=== PATIENT | male | born 1990 | race African-American/Black ===

== ENCOUNTER 2016-10-04 20:25 | Inpatient (IN) | payer BC, OTHER ==
[~2016-10-04] VITALS: Ht 193 cm; Wt 156.0 kg
[2016-10-04] MEDS ORDERED: FAMOTIDINE 20 MG INJ IV STA (21:29)
[2016-10-04] MEDS ORDERED: morphine 4 MG/ML VIAL IV STA (21:29)
[2016-10-04] MEDS ORDERED: ONDANSETRON 4 MG INJ IV STA (21:29)
[2016-10-04] MEDS ORDERED: SOD CHLORIDE 0.9% 1,000 ML IV STA (21:29)
[2016-10-04 22:01] LABS: ADD SCAN DIFF NO
[2016-10-04 22:05] LABS: BASOPHILS % 0.2 % (0.0-2.0); EOSINOPHILS # 0.1 10^3/ul (0.0-0.5); EOSINOPHILS % 0.5 % (0.0-7.0); HEMATOCRIT 48.9 % (42.0-52.0); HEMOGLOBIN 16.1 g/dl (14.0-18.0); LYMPHOCYTES # 1.4 10^3/ul (0.8-2.9); LYMPHOCYTES % 13.8 % (15.0-51.0); MEAN CORPUSCULAR HEMOGLOBIN 29.8 pg (29.0-33.0); MEAN CORPUSCULAR HGB CONC 32.9 g/dl (32.0-37.0); MEAN CORPUSCULAR VOLUME 90.4 fl (82.0-101.0); MEAN PLATELET VOLUME 10.5 fl (7.4-10.4); MONOCYTE # 0.9 10^3/ul (0.3-0.9); MONOCYTES % 9.2 % (0.0-11.0); NEUTROPHIL # 7.5 10^3/ul (1.6-7.5); NEUTROPHILS % 75.9 % (39.0-77.0); PLATELET COUNT 244 10^3/UL (140-415); RED BLOOD COUNT 5.41 10^6/ul (4.70-6.10); RED CELL DISTRIBUTION WIDTH 12.8 % (11.5-14.5); WHITE BLOOD COUNT 9.9 10^3/ul (4.8-10.8)
[2016-10-04 22:09] LABS: ADD UMIC NO; UR ASCORBIC ACID NEGATIVE (NEGATIVE); UR BILIRUBIN (Dip) NEGATIVE (NEGATIVE); UR BLOOD (Dip) NEGATIVE (NEGATIVE); UR CLARITY CLEAR (CLEAR); UR COLOR YELLOW (YELLOW); UR GLUCOSE (Dip) NEGATIVE (NEGATIVE); UR KETONES (Dip) TRACE mg/dL (NEGATIVE); UR LEUKOCYTE ESTERASE (Dip) NEGATIVE Leu/ul (NEGATIVE); UR NITRITE (Dip) NEGATIVE (NEGATIVE); UR TOTAL PROTEIN (Dip) NEGATIVE (NEGATIVE); UR UROBILINOGEN (Dip) NEGATIVE (NEGATIVE)
[2016-10-04 22:29] LABS: ALBUMIN 4.8 g/dl (3.3-4.9); ALBUMIN/GLOBULIN RATIO 1.54; BILIRUBIN,INDIRECT 2.1 mg/dl (0-1.1); BILIRUBIN,TOTAL 2.1 mg/dl (0.2-1.3); CALCIUM 9.5 mg/dl (8.4-10.2); CREATININE 0.95 mg/dl (0.61-1.24); POTASSIUM 3.7 mmol/L (3.5-5.1); TOTAL PROTEIN 7.9 g/dl (6.1-8.1)
--- NOTE | 2016-10-04 23:02 | RADRPT ---
PROCEDURE: CT abdomen and pelvis without contrast. CLINICAL INDICATION: Abdominal Pain TECHNIQUE: CT scan of the abdomen and pelvis without contrast was performed and is reconstructed a t 2.5 mm contiguous axial intervals from the dome of the diaphragm to the inferior pubic rami.. The patient was scanned without intravenous contrast. Sagittal and coronal reformatted images were obt ained from the axial source images. The calculated radiation dose measures 1502 mGy centimeters. The CTDI measures 24 mGy. COMPARISON: None. FINDINGS: The lung bases are clear of any infiltrate or nodule. No effusion is seen. The liver is of normal size, contour and attenuation with no mass or ductal dilatation. No gallston es are visualized. No splenic, adrenal or pancreatic abnormalities present. Kidneys are of normal size and contour. No hydronephrosis, calculus or masses seen. Ureters are o f normal course and caliber with no stone. No bladder mass or stone is present. There is no aneurysm. No adenopathy is present. No bowel mass or obstruction is present. The appendix is not commonly seen. The cecum is seen de ep in the central pelvis and there is 8 5 mm calcification superior to the cecum with mild infiltrat ion of the surrounding fat. It is unclear if this represents evidence of calcified appendicolith wi th early appendicitis or possibly diverticulitis. No discrete abscess or pneumoperitoneum is visual ized. There is trace pelvic ascites. The osseous structures are intact. IMPRESSION: Appendix not confidently visualized. Redundant cecum deep in the pelvis with a 5 mm adjacent calcif ication and surrounding infiltration of the fat. Question calcified appendicolith with early appendi citis versus diverticulitis. No abscess or pneumoperitoneum. Clinical correlation is suggested. C onsider repeat dedicated CT of pelvis with oral or rectal contrast and intravenous contrast for more definitive diagnosis. .Jamison Mckeon MD, MD Date Time Electronically viewed and signed by .Jamison Mckeon MD, on 10/04/2016 23:02 .A/
--- NOTE | 2016-10-04 23:29 | ERD ---
ER Documentation Chief Complaint Date/Time DATE: 10/04/16 TIME: 23:27 Chief Complaint AP since last night, +nausea, -vomit (RAMA VALENZUELA) HPI This is a 26-year-old male presents to the ER with lower abdominal pain that started last night. Pain is intermittent and severe. Pain is located in the right lower quadrant and radiates to the left lower quadrant. Patient admits to nausea however denies any vomiting or diarrhea. He denies any urinary frequency or dysuria. He has not taken anything for the pain. (RAMA VALENZUELA) ROS 12 point review of systems was done, all negative except per HPI. (RAMA VALENZUELA) Medications Home Meds Reported Medications Doxycycline Hyclate (Acticlate) 150 Mg Tablet, 150 MG PO, TAB 10/05/16 Allergies Allergies: Coded Allergies: No Known Allergy (Unverified , 10/04/16) PMhx/Soc History of Surgery: No Anesthesia Reaction: No Hx Neurological Disorder: No Hx Respiratory Disorders: No Hx Cardiac Disorders: No Hx Psychiatric Problems: No Hx Miscellaneous Medical Probl: No Hx Alcohol Use: Yes (OCC) Hx Substance Use: No Hx Tobacco Use: No Smoking Status: Never smoker (RAMA VALENZUELA) Physical Exam Vitals Vital Signs Date Time Temp Pulse Resp B/P Pulse Ox O2 Delivery O2 Flow Rate FiO2 10/04/16 20:58 98.5 67 18 143/104 100 (EKMEKJIANJACY MD) Physical Exam GENERAL: The patient is well developed and appropriate for usual state of health , in no apparent distress. HEENT: Atraumatic. CHEST: Clear to auscultation bilaterally. There are no rales, wheezes or rhonchi. HEART: Regular rate and rhythm. No murmurs, clicks, rubs or gallops. ABDOMEN: Soft and nondistended, tender to palpation in the right lower quadrant in the left lower quadrant.. Good bowel sounds. No rebound or guarding. No gross peritonitis. No gross organomegaly or masses. No Argueta sign or McBurney point tenderness. BACK: No midline or flank tenderness. NEURO: Alert and oriented. SKIN: The skin is warm and dry. (RAMA VALENZUELA) Result Diagram: 7/5/17 2140 7/5/17 2140 Results 24 hrs Laboratory Tests Test 10/04/16 21:40 10/04/16 21:46 White Blood Count 9.910^3/ul Red Blood Count 5.4110^6/ul Hemoglobin 16.1g/dl Hematocrit 48.9% Mean Corpuscular Volume 90.4fl Mean Corpuscular Hemoglobin 29.8pg Mean Corpuscular Hemoglobin Concent 32.9g/dl Red Cell Distribution Width 12.8% Platelet Count 69271^3/UL Mean Platelet Volume 10.5fl Neutrophils % 75.9% Lymphocytes % 13.8% Monocytes % 9.2% Eosinophils % 0.5% Basophils % 0.2% Nucleated Red Blood Cells % 0.0/100WBC Neutrophils # 7.510^3/ul Lymphocytes # 1.410^3/ul Monocytes # 0.910^3/ul Eosinophils # 0.110^3/ul Basophils # 0.010^3/ul Nucleated Red Blood Cells # 0.010^3/ul Sodium Level 137mmol/L Potassium Level 3.7mmol/L Chloride Level 99mmol/L Carbon Dioxide Level 30mmol/L Anion Gap 12 Blood Urea Nitrogen 8mg/dl Creatinine 0.95mg/dl Glucose Level 92mg/dl Calcium Level 9.5mg/dl Total Bilirubin 2.1mg/dl Direct Bilirubin 0.00mg/dl Indirect Bilirubin 2.1mg/dl Aspartate Amino Transf (AST/SGOT) 37IU/L Alanine Aminotransferase (ALT/SGPT) 35IU/L Alkaline Phosphatase 56IU/L Total Protein 7.9g/dl Albumin 4.8g/dl Globulin 3.10g/dl Albumin/Globulin Ratio 1.54 Lipase 28U/L Urine Color YELLOW Urine Clarity CLEAR Urine pH 6.0 Urine Specific [place] 1.020 Urine Ketones TRACEmg/dL Urine Nitrite NEGATIVEmg/dL Urine Bilirubin NEGATIVEmg/dL Urine Urobilinogen NEGATIVEmg/dL Urine Leukocyte Esterase NEGATIVELeu/ul Urine Hemoglobin NEGATIVEmg/dL Urine Glucose NEGATIVEmg/dL Urine Total Protein NEGATIVEmg/dl Current Medications Medications (Trade) Dose Ordered Sig/Roldan Route PRN Reason Start Time Stop Time Status Last Admin Dose Admin Sodium Chloride (NS) 1,000 ml @ 1,000 mls/hr Q1H STAT IV 10/04/16 21:29 10/04/16 22:28 DC 10/04/16 21:56 Morphine Sulfate (morphine) 6 mg ONCE STAT IV 10/04/16 21:29 10/04/16 21:31 DC 10/04/16 21:56 Ondansetron HCl (Zofran Inj) 4 mg ONCE STAT IV 10/04/16 21:29 10/04/16 21:31 DC 10/04/16 21:55 Famotidine (Pepcid Iv) 20 mg ONCE STAT IV 10/04/16 21:29 10/04/16 21:31 DC 10/04/16 21:55 Morphine Sulfate (morphine) 6 mg ONCE ONCE IV 10/04/16 23:30 10/04/16 23:31 DC 10/04/16 23:25 IV Flush 10 ml 10 ml STK-MED ONCE .ROUTE 10/04/16 23:35 10/04/16 23:36 DC 10/04/16 23:49 Sodium Chloride (NS) 100 ml @ ud STK-MED ONCE .ROUTE 10/04/16 23:35 10/04/16 23:36 DC 10/04/16 23:49 Iohexol 150 ml 150 ml STK-MED ONCE .ROUTE 10/04/16 23:35 10/04/16 23:36 DC 10/04/16 23:49 Piperacillin Sod/ Tazobactam Sod 100 ml @ 200 mls/hr ONCE ONCE IVPB 10/05/16 01:30 10/05/16 01:59 DC 10/05/16 02:01 Sodium Chloride (NS) 1,000 ml @ 1,000 mls/hr Q1H ONCE IV 10/05/16 01:30 10/05/16 02:29 DC 10/05/16 02:00 Hydromorphone HCl (Dilaudid) 1 mg ONCE STAT IV 10/05/16 01:36 10/05/16 01:37 DC 10/05/16 02:00 (JACY ELLIOTT MD) Procedures/MDM This is a 26-year-old male presents to the ER with lower abdominal pain that started last night. At this time CT indicates appendicitis versus diverticulitis. Patient was started on Zosyn and given fluids. We are awaiting surgery consultation at this time. Patient will more than likely be admitted. (RAMA VALENZUELA) Patient was signed out to me by the PA. CT shows evidence of possible acute appendicitis versus diverticulitis. Patient is hemodynamically stable at this time and afebrile. IV fluids and antibiotics were started. I spoke with the surgeon on-call, , who agreed to consult on the patient. Patient will be admitted to [facility]. Accepting Care Team: Current data and ongoing care discussed. Time: Time of admission Primary Provider: Qamar Consulting: bishop Outstanding Data: none (JACY ELLIOTT MD) Departure Diagnosis: Primary Impression: Acute appendicitis Acute appendicitis type: unspecified acute appendicitis type Qualified Code: K35.80 - Acute appendicitis, unspecified acute appendicitis type Condition: Serious RAMA VALENZUELA Oct 04, 2016 23:29 JACY ELLIOTT MD Oct 05, 2016 04:37
[2016-10-04] MEDS ORDERED: morphine 10 MG INJ IV ONE (23:30)
[2016-10-04] MEDS ORDERED: IOHEXOL 300MG/ML 150 ML BTL ONE (23:35)
[2016-10-04] MEDS ORDERED: SOD CHLORIDE 0.9% 100 ML ONE (23:35)
--- NOTE | 2016-10-05 00:45 | RADRPT ---
PROCEDURE: CT Abdomen and pelvis with contrast. CLINICAL INDICATION: Abdominal pain. TECHNIQUE: CT scan of the abdomen and pelvis with contrast was performed on a multi-detector high -resolution CT scanner. The patient was scanned following the uncomplicated administration of 100 c c of Omnipaque 300 intravenous contrast. Coronal and sagittal reformatted images were obtained from the axial source images. Images were reviewed on a high-resolution PACS workstation. One or more of the following dose reduction techniques were used: - Automated exposure control. - Adjustment of the mA and/or kV according to patient size. - Use of iterative reconstruction technique. Exam CTD/vol = 23.82 mGy. Total exam DLP = 1686.65 mGy-cm. COMPARISON: 10/04/2016. FINDINGS: Evaluation of the lung bases demonstrates mild right basilar atelectasis and trace pleural effusion. Abdomen: The liver is normal in size. There is no focal mass or dilatation of the biliary tree. T he gallbladder is not distended. The spleen, pancreas and bilateral adrenal glands are within carmen l limits. Bilateral kidneys are normal in size with symmetric enhancement. There is no focal mass, hydronephrosis or hydroureter. There is no retroperitoneal adenopathy. The abdominal aorta is of normal caliber. The appendix is not definitely visualized. Again demonstrated a focal outpouching off of the medial wall of the cecum containing a focal calcification, wall thickening and mild adjacent stranding. Th ere is no bowel obstruction or free air. Pelvis: The bladder is unremarkable. There is mild pelvic free fluid. The prostate and seminal ve sicles are within normal limits. There is no significant pelvic adenopathy. Evaluation of the osseous structures demonstrates no suspicious lytic or blastic lesion. IMPRESSION: Appendix is not definitely visualized. Again demonstrated a focal outpouching off of the medial wal l of the cecum containing a focal calcification, wall thickening and mild adjacent stranding. Findin gs are unchanged from the prior study and differential remains appendicitis versus diverticulitis. F ollow-up is recommended and further evaluation can be made by repeat contrast CT with oral or rectal contrast. Mild pelvic free fluid. Mild right basilar atelectasis and trace pleural effusion. .Oracio Martinez MD, MD Date Time Electronically viewed and signed by .Oracio Martinez MD, on 10/05/2016 00:44 .T/
[2016-10-05] MEDS ORDERED: SOD CHLORIDE 0.9% 1,000 ML IV ONE (01:30)
[2016-10-05] MEDS ORDERED: PIPER-TAZO 3.375 GM IV (PMX) 100 ML IVPB ONE (01:30)
[2016-10-05] MEDS ORDERED: HYDROmorphONE 1 MG/ML SYG IV STA (01:36)
[2016-10-05] MEDS ORDERED: ONDANSETRON 4 MG INJ IV PRN ×2 (02:30→04:30)
[2016-10-05] MEDS ORDERED: ACETAMINOPHEN 325 MG TAB PO PRN (02:30)
[2016-10-05 03:37] VITALS: TEMP 98.5
[2016-10-05] MEDS ORDERED: DOXY150T12 PO (03:41)
[2016-10-05 04:00] VITALS: BP 119/55; PULSE 45; RESP 18; Ht 193 cm; Wt 156.0 kg
--- NOTE | 2016-10-05 04:27 | HP ---
Date/Time of Note Date/Time of Note DATE: 10/05/16 TIME: 04:26 Assessment/Plan VTE Prophylaxis VTE Prophylaxis Intervention: ambulation Assessment/Plan Assessment/Plan 26 yo M who presents with RLQ abd pain of sudden onset with CT findings concerning for acute appendicitis versus diverticulitis. PLAN: admit / IVF / empiric abx / pain control / Dr Crockett has been notified by ER and will review patient . further interventions per clinical course NPO for now in case of surgery. HPI/ROS Admit Date/Time Admit Date/Time 10/05/16 Hx of Present Illness PRESENTING COMPLAINT: abd pain HISTORY OF PRESENTING COMPLAINT: This is a 26-year-old male presents to the ER with lower abdominal pain that started last night. Pain is intermittent and severe. Pain is located in the right lower quadrant and radiates to the left lower quadrant. pain is associated with nausea however denies any vomiting or diarrhea. He denies any urinary frequency or dysuria. no fever. ROS 12 point review if systems was done and pertinent findings are as noted. PMH/Family/Social Past Medical History Medical History: no pertinent history Past Surgical History Past Surgical Hx: other (surgery r hand) Family History Significant Family History: no pertinent family hx Social History Alcohol Use: occasionally Smoking Status: Never smoker Drug Use: none Exam/Review of Systems Vital Signs Vitals Vital Signs Date Time Temp Pulse Resp B/P Pulse Ox O2 Delivery O2 Flow Rate FiO2 10/05/16 03:37 98.5 50 18 128/61 97 Room Air Exam Exam Constitutional: alert, oriented Head: atraumatic, normocephalic Neck: non-tender, supple Respiratory: clear to auscultation Cardiovascular: regular rate and rhythm Gastrointestinal: rlq tenderness, overall abd is soft, non distended,+bs Extremities: normal pulses Labs Result Diagram: 10/04/16213910/04/162139 Procedures Procedures Laboratory Tests Test 10/04/16 21:40 10/04/16 21:46 White Blood Count 9.910^3/ul Red Blood Count 5.4110^6/ul Hemoglobin 16.1g/dl Hematocrit 48.9% Mean Corpuscular Volume 90.4fl Mean Corpuscular Hemoglobin 29.8pg Mean Corpuscular Hemoglobin Concent 32.9g/dl Red Cell Distribution Width 12.8% Platelet Count 75126^3/UL Mean Platelet Volume 10.5fl Neutrophils % 75.9% Lymphocytes % 13.8% Monocytes % 9.2% Eosinophils % 0.5% Basophils % 0.2% Nucleated Red Blood Cells % 0.0/100WBC Neutrophils # 7.510^3/ul Lymphocytes # 1.410^3/ul Monocytes # 0.910^3/ul Eosinophils # 0.110^3/ul Basophils # 0.010^3/ul Nucleated Red Blood Cells # 0.010^3/ul Sodium Level 137mmol/L Potassium Level 3.7mmol/L Chloride Level 99mmol/L Carbon Dioxide Level 30mmol/L Anion Gap 12 Blood Urea Nitrogen 8mg/dl Creatinine 0.95mg/dl Glucose Level 92mg/dl Calcium Level 9.5mg/dl Total Bilirubin 2.1mg/dl Direct Bilirubin 0.00mg/dl Indirect Bilirubin 2.1mg/dl Aspartate Amino Transf (AST/SGOT) 37IU/L Alanine Aminotransferase (ALT/SGPT) 35IU/L Alkaline Phosphatase 56IU/L Total Protein 7.9g/dl Albumin 4.8g/dl Globulin 3.10g/dl Albumin/Globulin Ratio 1.54 Lipase 28U/L Urine Color YELLOW Urine Clarity CLEAR Urine pH 6.0 Urine Specific [place] 1.020 Urine Ketones TRACEmg/dL Urine Nitrite NEGATIVEmg/dL Urine Bilirubin NEGATIVEmg/dL Urine Urobilinogen NEGATIVEmg/dL Urine Leukocyte Esterase NEGATIVELeu/ul Urine Hemoglobin NEGATIVEmg/dL Urine Glucose NEGATIVEmg/dL Urine Total Protein NEGATIVEmg/dl PROCEDURE: CT Abdomen and pelvis with contrast. CLINICAL INDICATION: Abdominal pain. TECHNIQUE: CT scan of the abdomen and pelvis with contrast was performed on a multi-detector high-resolution CT scanner. The patient was scanned following the uncomplicated administration of 100 cc of Omnipaque 300 intravenous contrast. Coronal and sagittal reformatted images were obtained from the axial source images. Images were reviewed on a high-resolution PACS workstation. One or more of the following dose reduction techniques were used: - Automated exposure control. - Adjustment of the mA and/or kV according to patient size. - Use of iterative reconstruction technique. Exam CTD/vol = 23.82 mGy. Total exam DLP = 1686.65 mGy-cm. COMPARISON: 10/04/2016. FINDINGS: Evaluation of the lung bases demonstrates mild right basilar atelectasis and trace pleural effusion. Abdomen: The liver is normal in size. There is no focal mass or dilatation of the biliary tree. The gallbladder is not distended. The spleen, pancreas and bilateral adrenal glands are within normal limits. Bilateral kidneys are normal in size with symmetric enhancement. There is no focal mass, hydronephrosis or hydroureter. There is no retroperitoneal adenopathy. The abdominal aorta is of normal caliber. The appendix is not definitely visualized. Again demonstrated a focal outpouching off of the medial wall of the cecum containing a focal calcification , wall thickening and mild adjacent stranding. There is no bowel obstruction or free air. Pelvis: The bladder is unremarkable. There is mild pelvic free fluid. The prostate and seminal vesicles are within normal limits. There is no significant pelvic adenopathy. Evaluation of the osseous structures demonstrates no suspicious lytic or blastic lesion. IMPRESSION: Appendix is not definitely visualized. Again demonstrated a focal outpouching off of the medial wall of the cecum containing a focal calcification, wall thickening and mild adjacent stranding. Findings are unchanged from the prior study and differential remains appendicitis versus diverticulitis. Follow-up is recommended and further evaluation can be made by repeat contrast CT with oral or rectal contrast. Mild pelvic free fluid. Mild right basilar atelectasis and trace pleural effusion. .Oracio Martinez MD, MD Date Time Electronically viewed and signed by .Oracio Martinez MD, MD on 10/05/2016 00:44 .T/ CC: RAMA VALENZUELA BOLATITO M. Oct 05, 2016 04:27
[2016-10-05] MEDS ORDERED: DOCUSATE SODIUM 100 MG CAP PO PRN (04:30)
[2016-10-05 05:05] LABS: ADD SCAN DIFF NO
[2016-10-05] MEDS: DEXTROSE 5%-0.45% NACL 1,000 ML IV SCH ×3 (05:11→20:46)
[2016-10-05] MEDS: metroNIDAZOLE 500 MG/NS (PMX) 100 ML IVPB SCH ×3 (05:11→21:54)
[2016-10-05 05:18] LABS: BASOPHILS % 0.3 % (0.0-2.0); EOSINOPHILS # 0.1 10^3/ul (0.0-0.5); EOSINOPHILS % 1.2 % (0.0-7.0); HEMATOCRIT 43.9 % (42.0-52.0); HEMOGLOBIN 14.4 g/dl (14.0-18.0); LYMPHOCYTES # 1.2 10^3/ul (0.8-2.9); LYMPHOCYTES % 15.7 % (15.0-51.0); MEAN CORPUSCULAR HEMOGLOBIN 29.5 pg (29.0-33.0); MEAN CORPUSCULAR HGB CONC 32.8 g/dl (32.0-37.0); MEAN PLATELET VOLUME 10.5 fl (7.4-10.4); MONOCYTE # 0.9 10^3/ul (0.3-0.9); MONOCYTES % 12.1 % (0.0-11.0); NEUTROPHIL # 5.2 10^3/ul (1.6-7.5); NEUTROPHILS % 70.6 % (39.0-77.0); PLATELET COUNT 228 10^3/UL (140-415); RED BLOOD COUNT 4.88 10^6/ul (4.70-6.10); RED CELL DISTRIBUTION WIDTH 12.5 % (11.5-14.5); WHITE BLOOD COUNT 7.4 10^3/ul (4.8-10.8)
[2016-10-05] MEDS: morphine 2 MG INJ IV PRN ×5 (05:19→22:48)
[2016-10-05 05:40] LABS: CALCIUM 8.6 mg/dl (8.4-10.2); CREATININE 0.86 mg/dl (0.61-1.24); MAGNESIUM 1.8 mg/dl (1.7-2.5); POTASSIUM 3.6 mmol/L (3.5-5.1)
[2016-10-05] MEDS: CIPROFLOXACIN 400MG/D5W 200 ML IVPB SCH ×2 (08:38→20:46)
[2016-10-05 09:09] VITALS: BP 99/47; RESP 20
[2016-10-05 11:47] VITALS: BP 122/64; PULSE 49; RESP 18
--- NOTE | 2016-10-05 14:15 | CONS ---
Date/Time of Note Date/Time of Note DATE: 10/05/16 TIME: 14:03 Assessment/Plan Assessment/Plan Additional Assessment/Plan Assessment * Abdominal pain R/O appendicitis vs Diverticulitis By CT scan Plan Surgery consult Maintain on NPO continue present management Case was discussed with Dr Salvador and DR Giles Further orders will depend on clinical course Consultation Date/Type/Reason Admit Date/Time 10/05/16 Date of Consultation: Oct 05, 2016 Type of Consultation: Gastroenterology Reason for Consultation Gastroenterology Hx of Present Illness 26 year old male who presented in the emergency room with right lower quadrant pain.Present condition apparently started 2 days prior to admission as vague abdominal pain associated with nausea but no vomiting .Pain is described as diffuse gradually localizing to right lower quadrant thus consulted emergency room where CT abdomen showed Appendix is not definitely visualized. Again demonstrated a focal outpouching off of the medial wall of the cecum containing a focal calcification, wall thickening and mild adjacent stranding. Findings are unchanged from the prior study and differential remains appendicitis versus diverticulitis. Follow-up is recommended and further evaluation can be made by repeat contrast CT with oral or rectal contrast.Mild pelvic free fluid.Mild right basilar atelectasis and trace pleural effusion CBC showed WBC 9.9 to 7.4 with neutrophils 75.9 to 70.6 Presently ,patient claimed improved right lower quadrant pain,no nausea , vomiting nor fever Constitutional: improved, no complaints Eyes: no complaints ENT: no complaints Respiratory: no complaints Cardiovascular: no complaints Gastrointestinal: nausea, pain Genitourinary: no complaints Musculoskeletal: no complaints Skin: no complaints Neurologic: no complaints Endocrine: no complaints Lymphatic: no complaints Psychological: nl mood/affect, no complaints Immunologic: no complaints Past Medical History Medical History: no pertinent history Past Surgical History Past Surgical Hx: other (surgery r hand) Social History Alcohol Use: occasionally Smoking Status: Never smoker Drug Use: none Exam/Review of Systems Vital Signs Vitals Vital Signs Date Time Temp Pulse Resp B/P Pulse Ox O2 Delivery O2 Flow Rate FiO2 10/05/16 13:46 97.8 10/05/16 11:47 49 18 122/64 Room Air 10/05/16 09:09 97 Intake and Output 10/04/16 10/04/16 10/05/16 15:00 23:00 07:00 Intake Total 110 ml Balance 110 ml Exam Constitutional: alert, oriented, well developed Psych: nl mood/affect, no complaints Head: atraumatic, normocephalic Eyes: EOMI, PERRL, nl conjunctiva, nl lids, nl sclera ENMT: nl external ears & nose, nl lips & teeth, nl nasal mucosa & septum Neck: non-tender, supple Respiratory: clear to auscultation, normal air movement Cardiovascular: nl pulses, regular rate and rhythm Gastrointestinal: nl liver, spleen, soft, tender (mild tenderness right lower quadrant .(-) Rovsings), No rebound or guarding Musculoskeletal: nl extremities to inspection, nl gait and stance Extremities: normal pulses Neurological: TROUBLE LINEMAN II-XII intact, nl mental status, nl speech, nl strength Skin: nl turgor, No rash or lesions Lymph: nl lymph nodes Results Result Diagram: 10/05/16 0453 10/05/16 0450 Results 24 hrs Laboratory Tests Test 10/04/16 21:40 10/04/16 21:46 10/05/16 04:50 10/05/16 04:53 White Blood Count 9.9 7.4 # Red Blood Count 5.41 4.88 Hemoglobin 16.1 14.4 Hematocrit 48.9 43.9 Mean Corpuscular Volume 90.4 90.0 Mean Corpuscular Hemoglobin 29.8 29.5 Mean Corpuscular Hemoglobin Concent 32.9 32.8 Red Cell Distribution Width 12.8 12.5 Platelet Count 244 228 Mean Platelet Volume 10.5 H 10.5 H Neutrophils % 75.9 70.6 Lymphocytes % 13.8 L 15.7 Monocytes % 9.2 12.1 H Eosinophils % 0.5 1.2 Basophils % 0.2 0.3 Nucleated Red Blood Cells % 0.0 0.0 Neutrophils # 7.5 5.2 Lymphocytes # 1.4 1.2 Monocytes # 0.9 0.9 Eosinophils # 0.1 0.1 Basophils # 0.0 0.0 Nucleated Red Blood Cells # 0.0 0.0 Sodium Level 137 137 Potassium Level 3.7 3.6 Chloride Level 99 102 Carbon Dioxide Level 30 27 Anion Gap 12 12 Blood Urea Nitrogen 8 6 L Creatinine 0.95 0.86 Glucose Level 92 92 Calcium Level 9.5 8.6 Total Bilirubin 2.1 H Direct Bilirubin 0.00 Indirect Bilirubin 2.1 H Aspartate Amino Transf (AST/SGOT) 37 Alanine Aminotransferase (ALT/SGPT) 35 Alkaline Phosphatase 56 Total Protein 7.9 Albumin 4.8 Globulin 3.10 Albumin/Globulin Ratio 1.54 Lipase 28 Urine Color YELLOW Urine Clarity CLEAR Urine pH 6.0 Urine Specific [place] 1.020 Urine Ketones TRACE A Urine Nitrite NEGATIVE Urine Bilirubin NEGATIVE Urine Urobilinogen NEGATIVE Urine Leukocyte Esterase NEGATIVE Urine Hemoglobin NEGATIVE Urine Glucose NEGATIVE Urine Total Protein NEGATIVE Magnesium Level 1.8 Medications Medications Current Medications Ondansetron HCl (Zofran Inj) 4 mg Q6H PRN IV NAUSEA AND/OR VOMITING; Start 10/05 at 04:30 Morphine Sulfate 2 mg 2 mg Q4H PRN IV pain Last administered on 10/05/16 08:37 ; Admin Dose 2 MG; Start 10/05/16 at 04:30 Dextrose/Sodium Chloride (D5-1/2ns) 1,000 ml @ 125 mls/hr Q8H IV Last administered on 10/05/16 11:42; Admin Dose 125 MLS/HR; Start 10/05/16 at 04:30 Docusate Sodium 100 mg 100 mg BID PRN PO CONSTIPATION; Start 10/05/16 at 04:30 Ciprofloxacin/ Dextrose 200 ml @ 200 mls/hr Q12 IVPB Last administered on 08:38; Admin Dose 200 MLS/HR; Start 10/05/16 at 09:00 Metronidazole (Flagyl 500 Mg (Pmx)) 100 ml @ 100 mls/hr Q8 IVPB Last administered on 10/05/16 13:47; Admin Dose 100 MLS/HR; Start 10/05/16 at 06:00 BECKY SQUIRES NP Oct 05, 2016 14:14
--- NOTE | 2016-10-05 15:53 | CONS ---
Date/Time of Note Date/Time of Note DATE: 10/05/16 TIME: 15:53 Assessment/Plan Assessment/Plan Additional Assessment/Plan [facility] INPATIENT CONSULTATION NOTE DATE OF SERVICE: 10/05/2016 PLACE OF SERVICE: [facility], fourth floor ASSESSMENT AND PLAN: A very-pleasant 26-year-old gentleman with a few comorbidities including BMI 41.9, with abdominal pain of unclear etiology. Not classic for acute appendicitis and no obvious appendix seen on the CT scan. Differential does include: Etiology such as diverticulosis as well as colitis. Given normal white blood cell count and temperature and unclear clinical picture , I recommended that we involve gastroenterology with consultation from them to consider possible need for endoscopic evaluation, further observation in-house and possible laparoscopic appendectomy if the patient continues to have pain or worsens. Explained all of the above to the patient and answered all questions to the best my ability (no family present during my discussions with the patient ). Patient appeared to understand and agreed with the plans. With above assessment, I've recommended the followin. Keep in house 2. Consider gastrology consultation 3. Regular diet 4. N.p.o. after midnight 5. Continue antimicrobials 6. Possible laparoscopic, possible open appendectomy tomorrow if the patient does not improve or if he worsens. This could also be done tonight if the patient continues to worsen. Thank you very much for having me involved in the care of this very pleasant gentleman and I am certain his wonderful family. I will continue to follow him along with you closely and will be available to answer any questions at [facility] [phone]. Disclaimer: Inadvertent spelling and grammatical errors are likely due to EHR/ dictation software use and do not reflect on the quality of delivered patient care. Also, please note that the electronic time recorded on this node does not necessarily reflect the actual time of the visit. Updated clinical summary: 26-year-old gentleman with a few comorbidities including BMI 41.9, with abdominal pain of unclear etiology. Not classic for acute appendicitis and no obvious appendix seen on the CT scan. Differential does include: Etiology such as diverticulosis as well as colitis. Given normal white blood cell count and temperature and unclear clinical picture, I recommended that we involve gastroenterology with consultation from them to consider possible need for endoscopic evaluation, further observation in-house and possible laparoscopic appendectomy if the patient continues to have pain or worsens. Comorbidities: 1. BMI 41.9 2. Similar episodes of right lower quadrant pain once or twice over the last 10 years HISTORY OF PRESENT ILLNESS: The patient is a very pleasant 26-year-old gentleman with a few comorbidities including BMI 41.9, with abdominal pain of less than 1 day duration that brought him into the emergency department at nighttime. Patient described it as a intermittent to severe type pain that was located in the right lower quadrant and radiated to the left lower quadrant. Some nausea noted but no obvious vomiting and no changes in bowel or bladder habits including no diarrhea, no constipation, and no blood in the stool or urine. He describes similar symptoms once or twice over the course of the last 10 years. He reported being evaluated and being told that he might have appendicitis but no surgery was ever done for this. No history of colitis in the patient and no significant history of colitis in the family. ALLERGIES: NO KNOWN DRUG ALLERGIES MEDICATIONS None SOCIAL HISTORY: The patient lives with family.-Tob; + ETOH (occasional);-IVDU FAMILY HISTORY: There are no significant medical, surgical or oncologic issues in the family as reported by the patient or reflected in the chart. REVIEW OF SYSTEMS: Other than mentioned above, there were no other pertinent positives or pertinent negatives in an otherwise complete 14 point review of systems. PHYSICAL EXAMINATION GENERAL: The patient appears to be a very pleasant young lady of descent lying in bed, appearing stated age,] and otherwise in no acute distress. BMI: VITAL SIGNS: AVSS (please also see below) HEENT: Normocephalic and atraumatic. Extraocular muscles and hearing are grossly intact bilaterally and symmetrically. Sclerae are nonicteric. Oral cavity is clear; oral mucosa appear to be pink and moist. Dentition: fair. NECK: Supple. There is no lymphadenopathy or JVD. There is no submental, submandibular or supraclavicular lymphadenopathy. CHEST: Rises symmetrically with each breath; patient is breathing comfortably. There are no audible wheezes, rales or rhonchi on the gross exam. HEART: Pulse is regular and palpable on the right wrist. Capillary refill is normal. Carotid pulses are palpable bilaterally and symmetrically in the neck. EXTREMITIES: Lower extremities contain no pitting edema around the ankles bilaterally and symmetrically. ABDOMEN: Abdomen is soft, nontender and nondistended. No evidence of ascites, organomegaly, caput medusae, engorged subcutaneous veins, or other abnormalities. There are no peritoneal signs or guarding. SKIN: Appears to be pink and feels warm to touch. NEUROLOGIC: Awake, alert, and follows commands appropriately. LABORATORY DATA: See below. White blood cell count 9.9 on admission and 7.4 on repeat, platelets 228. Electrolytes normal. Total bilirubin 2.1, AST 37, ALT 35, alkaline phosphatase 56, albumin 4.8, lipase 28. Urinalysis normal with no nitrite or leukocyte Estrace. IMAGING: See electronic chart. Please note that I've personally reviewed all pertinent available images and I agree in general with their overall reported findings. CT scan abdomen and pelvis done at [facility] 10/05/2016 IMPRESSION: Appendix is not definitely visualized. Again demonstrated a focal outpouching off of the medial wall of the cecum containing a focal calcification, wall thickening and mild adjacent stranding. Findings are unchanged from the prior study and differential remains appendicitis versus diverticulitis. Follow-up is recommended and further evaluation can be made by repeat contrast CT with oral or rectal contrast. Mild pelvic free fluid. Mild right basilar atelectasis and trace pleural effusion. Consultation Date/Type/Reason Admit Date/Time 10/05/16 Constitutional: improved, no complaints Eyes: no complaints ENT: no complaints Respiratory: no complaints Cardiovascular: no complaints Gastrointestinal: nausea, pain Genitourinary: no complaints Musculoskeletal: no complaints Skin: no complaints Neurologic: no complaints Endocrine: no complaints Lymphatic: no complaints Psychological: nl mood/affect, no complaints Immunologic: no complaints Past Medical History Medical History: no pertinent history Past Surgical History Past Surgical Hx: other (surgery r hand) Social History Alcohol Use: occasionally Smoking Status: Never smoker Drug Use: none Exam/Review of Systems Vital Signs Vitals Vital Signs Date Time Temp Pulse Resp B/P Pulse Ox O2 Delivery O2 Flow Rate FiO2 10/05/16 13:46 97.8 10/05/16 11:47 49 18 122/64 Room Air 10/05/16 09:09 97 Intake and Output 10/04/16 10/04/16 10/05/16 15:00 23:00 07:00 Intake Total 110 ml Balance 110 ml Results Result Diagram: 10/05/16 0453 10/05/16 0450 Results 24 hrs Laboratory Tests Test 10/04/16 21:40 10/04/16 21:46 10/05/16 04:50 10/05/16 04:53 White Blood Count 9.9 7.4 # Red Blood Count 5.41 4.88 Hemoglobin 16.1 14.4 Hematocrit 48.9 43.9 Mean Corpuscular Volume 90.4 90.0 Mean Corpuscular Hemoglobin 29.8 29.5 Mean Corpuscular Hemoglobin Concent 32.9 32.8 Red Cell Distribution Width 12.8 12.5 Platelet Count 244 228 Mean Platelet Volume 10.5 H 10.5 H Neutrophils % 75.9 70.6 Lymphocytes % 13.8 L 15.7 Monocytes % 9.2 12.1 H Eosinophils % 0.5 1.2 Basophils % 0.2 0.3 Nucleated Red Blood Cells % 0.0 0.0 Neutrophils # 7.5 5.2 Lymphocytes # 1.4 1.2 Monocytes # 0.9 0.9 Eosinophils # 0.1 0.1 Basophils # 0.0 0.0 Nucleated Red Blood Cells # 0.0 0.0 Sodium Level 137 137 Potassium Level 3.7 3.6 Chloride Level 99 102 Carbon Dioxide Level 30 27 Anion Gap 12 12 Blood Urea Nitrogen 8 6 L Creatinine 0.95 0.86 Glucose Level 92 92 Calcium Level 9.5 8.6 Total Bilirubin 2.1 H Direct Bilirubin 0.00 Indirect Bilirubin 2.1 H Aspartate Amino Transf (AST/SGOT) 37 Alanine Aminotransferase (ALT/SGPT) 35 Alkaline Phosphatase 56 Total Protein 7.9 Albumin 4.8 Globulin 3.10 Albumin/Globulin Ratio 1.54 Lipase 28 Urine Color YELLOW Urine Clarity CLEAR Urine pH 6.0 Urine Specific [place] 1.020 Urine Ketones TRACE A Urine Nitrite NEGATIVE Urine Bilirubin NEGATIVE Urine Urobilinogen NEGATIVE Urine Leukocyte Esterase NEGATIVE Urine Hemoglobin NEGATIVE Urine Glucose NEGATIVE Urine Total Protein NEGATIVE Magnesium Level 1.8 Medications Medications Current Medications Ondansetron HCl (Zofran Inj) 4 mg Q6H PRN IV NAUSEA AND/OR VOMITING; Start 10/05 at 04:30 Morphine Sulfate 2 mg 2 mg Q4H PRN IV pain Last administered on 10/05/16t 08:37 ; Admin Dose 2 MG; Start 10/05/16 at 04:30 Dextrose/Sodium Chloride (D5-1/2ns) 1,000 ml @ 125 mls/hr Q8H IV Last administered on 10/05/16 11:42; Admin Dose 125 MLS/HR; Start 10/05/16 at 04:30 Docusate Sodium 100 mg 100 mg BID PRN PO CONSTIPATION; Start 10/05/16 at 04:30 Ciprofloxacin/ Dextrose 200 ml @ 200 mls/hr Q12 IVPB Last administered on 08:38; Admin Dose 200 MLS/HR; Start 10/05/16 at 09:00 Metronidazole (Flagyl 500 Mg (Pmx)) 100 ml @ 100 mls/hr Q8 IVPB Last administered on 10/05/16 13:47; Admin Dose 100 MLS/HR; Start 10/05/16 at 06:00 NICANOR SCHMID M.D. Oct 05, 2016 15:53
[2016-10-05 19:50] VITALS: BP 117/56; RESP 48
[2016-10-06] MEDS: DEXTROSE 5%-0.45% NACL 1,000 ML IV SCH ×3 (04:30→20:38)
[2016-10-06] MEDS: metroNIDAZOLE 500 MG/NS (PMX) 100 ML IVPB SCH ×3 (05:47→22:37)
[2016-10-06 07:03] LABS: ADD SCAN DIFF NO
[2016-10-06 07:08] LABS: BASOPHILS % 0.4 % (0.0-2.0); EOSINOPHILS # 0.2 10^3/ul (0.0-0.5); EOSINOPHILS % 2.9 % (0.0-7.0); HEMATOCRIT 44.1 % (42.0-52.0); HEMOGLOBIN 14.4 g/dl (14.0-18.0); LYMPHOCYTES % 18.4 % (15.0-51.0); MEAN CORPUSCULAR HEMOGLOBIN 29.8 pg (29.0-33.0); MEAN CORPUSCULAR HGB CONC 32.7 g/dl (32.0-37.0); MEAN CORPUSCULAR VOLUME 91.3 fl (82.0-101.0); MEAN PLATELET VOLUME 10.5 fl (7.4-10.4); MONOCYTE # 0.8 10^3/ul (0.3-0.9); MONOCYTES % 14.6 % (0.0-11.0); NEUTROPHIL # 3.5 10^3/ul (1.6-7.5); NEUTROPHILS % 63.5 % (39.0-77.0); PLATELET COUNT 222 10^3/UL (140-415); RED BLOOD COUNT 4.83 10^6/ul (4.70-6.10); RED CELL DISTRIBUTION WIDTH 12.8 % (11.5-14.5); WHITE BLOOD COUNT 5.5 10^3/ul (4.8-10.8)
[2016-10-06 07:39] LABS: CALCIUM 9.2 mg/dl (8.4-10.2); CREATININE 0.96 mg/dl (0.61-1.24); POTASSIUM 4.2 mmol/L (3.5-5.1)
[2016-10-06] MEDS: CIPROFLOXACIN 400MG/D5W 200 ML IVPB SCH ×2 (08:46→21:13)
[2016-10-06 09:21] VITALS: BP 125/63; RESP 20
[2016-10-06] MEDS: morphine 2 MG INJ IV PRN ×2 (10:06→19:46)
--- NOTE | 2016-10-06 12:43 | PN ---
Date/Time of Note Date/Time of Note DATE: 10/06/16 TIME: 12:30 Assessment/Plan VTE Prophylaxis VTE Prophylaxis Intervention: ambulation Lines/Catheters IV Catheter Type (from Nrsg): Peripheral IV Assessment/Plan Chief Complaint/Hosp Course Assessment/Plan: 26 yo M who presents with RLQ abd pain of sudden onset with CT findings concerning for acute appendicitis versus diverticulitis. PLAN: RLQ pain - IVF / empiric abx / pain control /per discussion with Dr Crockett, will seek further gastroenterology input, especially regarding any possible colonoscopy procedures to further evaluate for any diverticular disease versus inflammatory bowel disease versus other. Right now surgery team does not feel like the appendix is significantly inflamed or the cause of the patient's pain at this point. Will start patient on clear liquid diet for now further interventions per clinical course Problems: Subjective 24 Hr Interval Summary Free Text/Dictation Patient seen by surgery team yesterday. Awaiting further input from GI attending. Asking when he can eat. Exam/Review of Systems Vital Signs Vitals Vital Signs Date Time Temp Pulse Resp B/P Pulse Ox O2 Delivery O2 Flow Rate FiO2 10/06/16 09:21 98.0 51 20 125/63 100 10/05/16 11:47 Room Air Intake and Output 10/05/16 10/05/16 10/06/16 15:00 23:00 07:00 Intake Total 300 ml 2300 ml 100 ml Balance 300 ml 2300 ml 100 ml Exam Constitutional: alert, oriented Head: atraumatic, normocephalic Neck: non-tender, supple Respiratory: clear to auscultation Cardiovascular: regular rate and rhythm Gastrointestinal: rlq tenderness, overall abd is soft, non distended,+bs Extremities: normal pulses Results Result Diagram: 10/06/16 0630 10/06/16 0638 Results 24 hrs Laboratory Tests Test 10/06/16 06:30 10/06/16 06:38 White Blood Count 5.5 # Red Blood Count 4.83 Hemoglobin 14.4 Hematocrit 44.1 Mean Corpuscular Volume 91.3 Mean Corpuscular Hemoglobin 29.8 Mean Corpuscular Hemoglobin Concent 32.7 Red Cell Distribution Width 12.8 Platelet Count 222 Mean Platelet Volume 10.5 H Neutrophils % 63.5 Lymphocytes % 18.4 Monocytes % 14.6 H Eosinophils % 2.9 Basophils % 0.4 Nucleated Red Blood Cells % 0.0 Neutrophils # 3.5 Lymphocytes # 1.0 Monocytes # 0.8 Eosinophils # 0.2 Basophils # 0.0 Nucleated Red Blood Cells # 0.0 Sodium Level 142 Potassium Level 4.2 Chloride Level 100 Carbon Dioxide Level 31 Anion Gap 15 Blood Urea Nitrogen 5 L Creatinine 0.96 Glucose Level 86 Calcium Level 9.2 Medications Medications Current Medications Ondansetron HCl (Zofran Inj) 4 mg Q6H PRN IV NAUSEA AND/OR VOMITING; Start 10/05 at 04:30 Morphine Sulfate 2 mg 2 mg Q4H PRN IV pain Last administered on 10/06/16 10:06 ; Admin Dose 2 MG; Start 10/05/16 at 04:30 Dextrose/Sodium Chloride (D5-1/2ns) 1,000 ml @ 125 mls/hr Q8H IV Last administered on 10/06/16 08:48; Admin Dose 125 MLS/HR; Start 10/05/16 at 04:30 Docusate Sodium 100 mg 100 mg BID PRN PO CONSTIPATION; Start 10/05/16 at 04:30 Ciprofloxacin/ Dextrose 200 ml @ 200 mls/hr Q12 IVPB Last administered on 08:46; Admin Dose 200 MLS/HR; Start 10/05/16 at 09:00 Metronidazole (Flagyl 500 Mg (Pmx)) 100 ml @ 100 mls/hr Q8 IVPB Last administered on 10/06/16 05:47; Admin Dose 100 MLS/HR; Start 10/05/16 at 06:00 TYLER DELEON Oct 06, 2016 12:41
--- NOTE | 2016-10-06 13:46 | PN ---
Date/Time of Note Date/Time of Note DATE: 10/06/16 TIME: 13:40 Assessment/Plan Lines/Catheters IV Catheter Type (from Nrsg): Peripheral IV Assessment/Plan Assessment/Plan [facility] Progress Note Date of Service: 10/06/16 Today's Impression & Plan: Overall stable with minor RLQ pain. Discussed with GI (Dr. Steven, covering for Dr. Salvador). At this time, recommendation is to go ahead with laparoscopic, possible open, appendectomy. I'm in agreement with this recommendation and discussed with Dr. Cm as well, in addition to the patient himself. Answered all questions. Obtained his consent for the operation. With above assessment, I've recommended the followin. Keep in house 2. Regular diet 3. N.p.o. after midnight 4. Continue antimicrobials 5. Laparoscopic, possible open appendectomy tomorrow am Thank you very much for having me involved in the care of this very pleasant gentleman and I am certain his wonderful family. I will continue to follow him along with you closely and will be available to answer any questions at area code [phone]. Disclaimer: Inadvertent spelling and grammatical errors are likely due to EHR/ dictation software use and do not reflect on the quality of delivered patient care. Also, please note that the electronic time recorded on this node does not necessarily reflect the actual time of the visit. Updated clinical summary: 26-year-old gentleman with a few comorbidities including BMI 41.9, with abdominal pain of unclear etiology. Not classic for acute appendicitis and no obvious appendix seen on the CT scan. Differential does include: Etiology such as diverticulosis as well as colitis. Given normal white blood cell count and temperature and unclear clinical picture, I recommended that we involve gastroenterology with consultation from them to consider possible need for endoscopic evaluation, further observation in-house and possible laparoscopic appendectomy if the patient continues to have pain or worsens. Comorbidities: 1. BMI 41.9 2. Similar episodes of right lower quadrant pain once or twice over the last 10 years Subjective: No major events or complaints; still with minor RLQ abd pain (when medication runs out) and under control with medications; no n/v/d; no sob or cp; + flatus; - BM; + activity Objective: Vitals: See below Exam: GENERAL: On exam, the patient was standing in his room and appeared to be comfortable and in no acute distress. ABDOMEN: Soft, nontender and nondistended. There are no peritoneal signs or guarding. SKIN: Skin appears to be pink and feels warm to touch. NEUROLOGIC: Patient is awake, alert, and follows commands appropriately. Exam/Review of Systems Vital Signs Vitals Vital Signs Date Time Temp Pulse Resp B/P Pulse Ox O2 Delivery O2 Flow Rate FiO2 10/06/16 09:21 98.0 51 20 125/63 100 10/05/16 11:47 Room Air Intake and Output 10/05/16 10/05/16 10/06/16 15:00 23:00 07:00 Intake Total 300 ml 2300 ml 100 ml Balance 300 ml 2300 ml 100 ml Results Result Diagram: 10/06/16 0630 10/06/16 0638 NICANOR SCHMID M.D. Oct 06, 2016 13:46
--- NOTE | 2016-10-06 14:30 | PN ---
Date/Time of Note Date/Time of Note DATE: 10/06/16 TIME: 14:26 Assessment/Plan VTE Prophylaxis VTE Prophylaxis Intervention: ambulation Lines/Catheters IV Catheter Type (from Nrsg): Peripheral IV Assessment/Plan Assessment/Plan Assessment * Abdominal pain R/O appendicitis vs Diverticulitis By CT scan Plan continue present management Case was discussed with Dr Salvador and DR Giles Further orders will depend on clinical course Subjective 24 Hr Interval Summary Free Text/Dictation * Course reviewed with RN * Patient seen and examined * Scheduled for appendectomy * no untoward events overnight Exam/Review of Systems Vital Signs Vitals Vital Signs Date Time Temp Pulse Resp B/P Pulse Ox O2 Delivery O2 Flow Rate FiO2 10/06/16 09:21 98.0 51 20 125/63 100 10/05/16 11:47 Room Air Intake and Output 10/05/16 10/05/16 10/06/16 15:00 23:00 07:00 Intake Total 300 ml 2300 ml 100 ml Balance 300 ml 2300 ml 100 ml Exam Constitutional: alert, oriented Neck: non-tender, supple Respiratory: clear to auscultation, normal air movement Cardiovascular: nl pulses, regular rate and rhythm Gastrointestinal: nl liver, spleen, non-tender, soft Musculoskeletal: nl extremities to inspection, nl gait and stance Extremities: normal pulses Neurological: nl speech, nl strength Skin: nl turgor Lymph: nl lymph nodes Results Result Diagram: 10/06/16 0630 10/06/16 0638 Results 24 hrs Laboratory Tests Test 10/06/16 06:30 10/06/16 06:38 White Blood Count 5.5 # Red Blood Count 4.83 Hemoglobin 14.4 Hematocrit 44.1 Mean Corpuscular Volume 91.3 Mean Corpuscular Hemoglobin 29.8 Mean Corpuscular Hemoglobin Concent 32.7 Red Cell Distribution Width 12.8 Platelet Count 222 Mean Platelet Volume 10.5 H Neutrophils % 63.5 Lymphocytes % 18.4 Monocytes % 14.6 H Eosinophils % 2.9 Basophils % 0.4 Nucleated Red Blood Cells % 0.0 Neutrophils # 3.5 Lymphocytes # 1.0 Monocytes # 0.8 Eosinophils # 0.2 Basophils # 0.0 Nucleated Red Blood Cells # 0.0 Sodium Level 142 Potassium Level 4.2 Chloride Level 100 Carbon Dioxide Level 31 Anion Gap 15 Blood Urea Nitrogen 5 L Creatinine 0.96 Glucose Level 86 Calcium Level 9.2 Medications Medications Current Medications Ondansetron HCl (Zofran Inj) 4 mg Q6H PRN IV NAUSEA AND/OR VOMITING; Start 10/05 at 04:30 Morphine Sulfate 2 mg 2 mg Q4H PRN IV pain Last administered on 10/06/16 10:06 ; Admin Dose 2 MG; Start 10/05/16 at 04:30 Dextrose/Sodium Chloride (D5-1/2ns) 1,000 ml @ 125 mls/hr Q8H IV Last administered on 10/06/16 08:48; Admin Dose 125 MLS/HR; Start 10/05/16 at 04:30 Docusate Sodium 100 mg 100 mg BID PRN PO CONSTIPATION; Start 10/05/16 at 04:30 Ciprofloxacin/ Dextrose 200 ml @ 200 mls/hr Q12 IVPB Last administered on 08:46; Admin Dose 200 MLS/HR; Start 10/05/16 at 09:00 Metronidazole (Flagyl 500 Mg (Pmx)) 100 ml @ 100 mls/hr Q8 IVPB Last administered on 10/06/16 05:47; Admin Dose 100 MLS/HR; Start 10/05/16 at 06:00 BECKY SQUIRES NP Oct 06, 2016 14:30
--- NOTE | 2016-10-06 16:56 | RADRPT ---
Vent Rate: 47 bpm RR Interval: 0 msec UT Interval: 250 msec QRS Duration: 112 msec QT Interval: 446 msec QTC Interval: 394 msec P-R-T [place]: 44 - 65 - 50 degrees Marked sinus bradycardia with 1st degree AV block Abnormal ECG Electronically Signed By: Ivan Kumar [id number]
[2016-10-06 19:40] VITALS: BP 136/74; RESP 18
--- NOTE | 2016-10-06 23:50 | RADRPT ---
PROCEDURE: XR Chest. CLINICAL INDICATION: Preoperative for appendicitis. TECHNIQUE: Two views. Frontal and lateral. COMPARISON: No prior study is available for comparison. FINDINGS: The lungs are clear. The heart size is normal. There is no pleural effusion. There is no pneumothorax. IMPRESSION: 1. Normal chest radiograph. RPTAT: QQ .Main Bacon MD, MD Date Time Electronically viewed and signed by .Main Bacon MD, MD on 10/06/2016 23:49 .R/
[2016-10-07] VITALS (17 sets, daily range): BP systolic 120–173; BP diastolic 57–75; PULSE 52–76; RESP 12–18
[2016-10-07] MEDS: DEXTROSE 5%-0.45% NACL 1,000 ML IV SCH (04:30)
[2016-10-07 05:32] LABS: ADD SCAN DIFF NO
[2016-10-07 05:48] LABS: INR 0.97; PROTIME 12.9 Sec (12.2-14.2)
[2016-10-07 05:49] LABS: PARTIAL THROMBOPLASTIN TIME 40.5 Sec (25.0-35.0)
[2016-10-07] MEDS: metroNIDAZOLE 500 MG/NS (PMX) 100 ML IVPB SCH (05:51)
[2016-10-07 06:05] LABS: ALBUMIN/GLOBULIN RATIO 1.42; BILIRUBIN,INDIRECT 0.5 mg/dl (0-1.1); BILIRUBIN,TOTAL 0.5 mg/dl (0.2-1.3); CALCIUM 9.5 mg/dl (8.4-10.2); CREATININE 0.91 mg/dl (0.61-1.24); MAGNESIUM 1.8 mg/dl (1.7-2.5); PHOSPHORUS 4.7 mg/dl (2.5-4.9); TOTAL PROTEIN 6.8 g/dl (6.1-8.1)
[2016-10-07 06:06] LABS: BASOPHIL # 0.1 10^3/ul (0.0-0.1); EOSINOPHILS # 0.2 10^3/ul (0.0-0.5); EOSINOPHILS % 3.1 % (0.0-7.0); HEMATOCRIT 43.4 % (42.0-52.0); HEMOGLOBIN 14.3 g/dl (14.0-18.0); LYMPHOCYTES # 1.4 10^3/ul (0.8-2.9); LYMPHOCYTES % 26.7 % (15.0-51.0); MEAN CORPUSCULAR HEMOGLOBIN 29.9 pg (29.0-33.0); MEAN CORPUSCULAR HGB CONC 32.9 g/dl (32.0-37.0); MEAN CORPUSCULAR VOLUME 90.8 fl (82.0-101.0); MEAN PLATELET VOLUME 10.9 fl (7.4-10.4); MONOCYTE # 0.8 10^3/ul (0.3-0.9); NEUTROPHIL # 2.7 10^3/ul (1.6-7.5); NEUTROPHILS % 53.1 % (39.0-77.0); PLATELET COUNT 227 10^3/UL (140-415); RED BLOOD COUNT 4.78 10^6/ul (4.70-6.10); RED CELL DISTRIBUTION WIDTH 12.8 % (11.5-14.5); WHITE BLOOD COUNT 5.1 10^3/ul (4.8-10.8)
[2016-10-07 06:32] LABS: MONOCYTES % 15.9 % (0.0-11.0)
[2016-10-07] MEDS ORDERED: LIDOCAINE 1% (MDV) 20 ML INJ ONE ×2 (07:00→08:41)
[2016-10-07] MEDS ORDERED: PROPOFOL 20 ML ONE (08:40)
[2016-10-07] MEDS ORDERED: SUCCINYLCHOLINE CHLORIDE 100 MG/5 ML SYG IV ONE (08:40)
[2016-10-07] MEDS ORDERED: MIDAZOLAM 1 MG/ML 2 ML INJ ONE (08:40)
[2016-10-07] MEDS ORDERED: ROCURONIUM 50 MG INJ ONE ×2 (08:40→10:08)
[2016-10-07] MEDS ORDERED: FENTAnyl 50 MCG/ML VIAL ONE ×3 (08:41→10:18)
[2016-10-07] MEDS ORDERED: SUGAMMADEX SODIUM 200 MG/2 ML VIAL IV ONE ×2 (08:48→12:04)
[2016-10-07] MEDS ORDERED: ROPIVACAINE 0.5 % 30 ML VIAL ONE (08:50)
[2016-10-07] MEDS ORDERED: KETOROLAC 30 MG INJ ONE (08:57)
[2016-10-07] MEDS: CIPROFLOXACIN 400MG/D5W 200 ML IVPB SCH (09:00)
--- NOTE | 2016-10-07 09:15 | HPN ---
Date/Time of Note Date/Time of Note DATE: 10/07/16 TIME: 09:06 Interval H&P Admission Note Pt. seen H&P reviewed: No system changes Pt. seen H&P reviewed. No system changes (I attest that I have seen and examined the patient and reviewed the operation in detail, as well as its risks , benefits and alternatives of the operation). I attest that I have seen and examined the patient and reviewed in detail the operation, and its associated risks, benefits and alternative. I have answered all the patient's questions to the best of my ability and the patient wishes to proceed. Please refer to rest of electronic medical record for additional updates. NICANOR SCHMID M.D. Oct 07, 2016 09:14
[2016-10-07] MEDS ORDERED: BUPIVACAINE 0.25%/EPI (SDV) 30 ML INJ ONE (09:27)
[2016-10-07] MEDS ORDERED: FAMOTIDINE 20 MG INJ ONE (09:54)
[2016-10-07] MEDS ORDERED: ONDANSETRON 4 MG INJ ONE (09:54)
[2016-10-07] MEDS ORDERED: DEXAMETHASONE 4 MG/ML 1 ML INJ ONE (09:54)
[2016-10-07] MEDS ORDERED: ONDANSETRON 4 MG INJ IV PRN (11:00)
[2016-10-07] MEDS ORDERED: HYDROmorphONE (0.2 MG/ML) 10ML SYG IV PRN ×2 (11:00)
[2016-10-07] MEDS ORDERED: METOCLOPRAMIDE 10 MG INJ IV PRN (11:00)
[2016-10-07] MEDS ORDERED: DIPHENHYDRAMINE 50 MG INJ IV PRN (11:00)
[2016-10-07] MEDS ORDERED: LORAZEPAM 2 MG INJ IV PRN (11:00)
[2016-10-07] MEDS ORDERED: MEPERIDINE 25 MG INJ IV PRN (11:00)
[2016-10-07] MEDS ORDERED: PROCHLORPERAZINE 10 MG INJ IV PRN (11:00)
[2016-10-07] MEDS ORDERED: MIDAZOLAM 1 MG/ML 2 ML INJ IV PRN (11:00)
[2016-10-07] MEDS ORDERED: hydrALAzine 20 MG INJ ONE (11:12)
[2016-10-07] MEDS ORDERED: NA PHOSPHATE/BIPHOS 133 ML ENEMA PR PRN (12:30)
[2016-10-07] MEDS ORDERED: HYDROmorphONE 1 MG/ML SYG IV PRN ×2 (12:30)
[2016-10-07] MEDS ORDERED: DOCUSATE SODIUM 100 MG CAP PO PRN (12:30)
[2016-10-07] MEDS ORDERED: BISACODYL 10 MG SUPP PR PRN (12:30)
[2016-10-07] MEDS: HYDROmorphONE (0.2 MG/ML) 10ML SYG IV PRN ×2 (12:47→13:03)
--- NOTE | 2016-10-07 12:49 | OPR ---
Date/Time of Note Date/Time of Note DATE: 10/07/16 TIME: 12:49 Operative Report Procedure Description [facility] INPATIENT OPERATIVE NOTE PLACE OF SERVICE: [facility] DATE OF SURGERY: 10/07/2016 PREOPERATIVE DIAGNOSIS: 1. Abdominal pain, possible acute appendicitis 2. Similar episodes of right lower quadrant pain once or twice over the last 10 years 3. BMI 41.9 POSTOPERATIVE DIAGNOSIS: 1. Focal colitis in cecum at and around expected site of appendix orifice with obliterated appendix 2. Similar episodes of right lower quadrant pain once or twice over the last 10 years 3. BMI 41.9 OPERATION: 1. Laparoscopic exploration with lysis of adhesions and mobilization of right colon SURGEON: Nicanor Schmid M.D. RESOURCE SPECIALIST: None ANESTHESIA: General endotracheal tube anesthesia ANESTHESIOLOGIST: Rosibel Sheppard M.D. BRIEF SUMMARY: An otherwise uncomplicated laparoscopic exploration with lysis of adhesions and mobilization of cecum usp up the descending colon as well as area of ileocecal valve was performed with findings of focal colitis added around the expected area of appendiceal stump with no structure identified as appendix indicating possible appendiceal obliteration. Updated clinical summary: A very pleasant 26-year-old gentleman with a few comorbidities including BMI 41.9, with abdominal pain of unclear etiology. Not classic for acute appendicitis and no obvious appendix seen on the CT scan. Differential does include: Etiology such as diverticulosis as well as colitis. Given normal white blood cell count and temperature and unclear clinical picture, I recommended that we involve gastroenterology with consultation from them to consider possible need for endoscopic evaluation, further observation in-house and possible laparoscopic appendectomy if the patient continues to have pain or worsens. Comorbidities: 1. BMI 41.9 2. Similar episodes of right lower quadrant pain once or twice over the last 10 years BRIEF HISTORY: The patient is a very pleasant 26-year-old gentleman with a few comorbidities including BMI 41.9, with abdominal pain of unclear etiology. Not classic for acute appendicitis and no obvious appendix seen on the CT scan. Differential included: Etiology such as diverticulosis as well as colitis. Given normal white blood cell count and temperature and unclear clinical picture , I recommended that we involve gastroenterology with consultation from them to consider possible need for endoscopic evaluation, further observation in-house and possible laparoscopic appendectomy if the patient continues to have pain or worsens. Patient remained clinically stable although still with right lower quadrant abdominal discomfort. I had a discussion with GI (Dr. Steven, covering for Dr. Salvador). At this time, recommendation was to go ahead with laparoscopic, possible open, appendectomy. I was in agreement with this recommendation and discussed with Dr. Cm as well, in addition to the patient himself. I met with the patient (and with his mother and sister right before the operation in his room) and counseled them regarding the possible options of treatment, and I recommended a laparoscopic, possible open appendectomy. We reviewed the operation in detail as well as the risks, benefits, alternatives, and expected outcomes of this operation. I also very carefully reviewed the rather unclear preoperative clinical picture and the possibilities of doing more surgery than just appendectomy (i.e. right hemicolectomy) or not removing any structures and backing out of the operation in order to do further testing ( i.e. colonoscopy). After careful consideration of all the risks, benefits, and alternatives, the patient and family appeared to understand those risks and wished to proceed with surgery. For a detailed report of my consultation with patient and family, please refer to my separate consultation note. STATEMENT OF THE INFORMED CONSENT: The patient and family appeared to understand the risks of the operation to include, but not be limited to risk of postoperative pain and scar tissue, possible infection or bleeding requiring other interventions such as opening the wound, placement of drainage catheters, or other operative interventions; possible injury to surrounding to structures including bowel, bladder, bile duct, or blood vessels, or solid organs such as liver, kidney, or pancreas requiring other interventions or procedures; possible leakage of bowel from anastomotic sites or suture lines causing significant increase in morbidity and mortality and requiring multiple interventions including but not limited to, placement of drainage catheters, imaging studies, as well as operative interventions; possible other source of sepsis such as urinary tract infections or pneumonias, or other sources of potentially life threatening problems such as deep venous thrombus formation causing pulmonary embolism, myocardial arrhythmias and infarctions, and even . After careful consideration of all their options, the patient and family appeared to understand and wished to proceed with surgery. DESCRIPTION OF PROCEDURE: After obtaining informed consent, the patient was brought into the operating room and was placed in a normal supine position, where successful general endotracheal tube anesthesia was performed. Intravenous access was already in place and intravenous antimicrobials had been appropriately chosen and dosed prior to the operation. The patient's abdominal skin was prepped and draped from the nipple line down to the level of the upper thighs in the usual sterile fashion. We then called a surgical time-out where the patient's identification, date of , nature of the operation, allergies , presence of intravenous antimicrobials, presence of needed equipment, and any other concerns were reviewed and agreed upon by all members of the operating room team. We then started the operation by placing a 5 mm skin incision in the left lower quadrant and then introduced a 5 mm [employer] trocar into the peritoneal space, visualizing all the layers of the abdominal wall as we entered. Note that there was no indication of any injury to underlying structures with our entry into the peritoneal space. We insufflated the abdominal cavity to a maximum pressure of 15 mmHg and again inspected the area of insertion and ensured no obvious injury to underlying structures prior to inspecting the abdominal cavity and showing no obvious pus, bowel contents, or other abnormal features. We could not see the appendix very well. We, therefore, injected the future sites of our other trocars with 0.25% Marcaine with epinephrine and placed a 5 mm [employer] trocar into the midline suprapubic area, taking care not to injure the bladder. We also placed a 12 mm trocar in the umbilical midline area, all under direct visualization. With our instruments in place, we had excellent visualization and access to the right lower quadrant. We then identified the cecum and the terminal ileum. The expected area where the appendix usually resides appear to be simply a swollen portion of the wall of the cecum. That area appeared to be thickened without any evidence of obvious malignancy or associated mass. The rest of the descending colon as well as the rest of the terminal ileum going into the ileocecal valve appeared to be absolutely normal. The cecum was densely adherent onto the retroperitoneum under where the expected area of the appendiceal stump was. In order to clarify the picture, I perform meticulous dissection and eventually was able to completely mobilize the cecum usp up the a sending colon as well as the area under the ileocecal valve. I could not find the appendix. There was a small area under the cecum very close to the ileocecal valve that appeared to have an outpouching of the cecum. Certainly, this could have been the stump of the appendix, although the probabilities were low given the location and the appearance of this region. The wall of this 1 cm area appeared to be pliable and the area more proximally of the wall of the appendix appears to be thickened. In my clinical judgment, this area did not represent the area of the appendix and because it was normal in appearance and the rest of the cecum was inflamed, I decided not to resect this region. I also carefully considered performing partial cecectomy to remove essentially the entire inflamed cecum, but I decided against doing so given the proximity of this region to the ileocecal valve and the potential for narrowing the ileocecal valve with this maneuver. In my reasoning, I also considered malignant reasons for this thickening versus nonmalignant etiologies of colitis. If this was a malignancy, then it would behoove us to make sure that we understand the preoperative diagnosis better, to stage the patient better, and preparing for the right oncologic operation. On the other hand, if this was from benign etiology such as colitis, then the patient would be at risk for colon perforation with a staple line in this setting and could potentially benefit and completely improved with medical management only. Also, removal of the right colon appeared to be too aggressive at this stage of his clinical care and in my opinion, not indicated at this time. For all these reasons, we decided to back out of the operation and to reinvolve our gastroenterology colleagues with the plan of patient having a bowel prep and colonoscopy during this admission and perhaps more surgery in a few days. We then ensured adequate hemostasis and bile stasis, removed all our equipment including the pneumoperitoneum from the abdominal cavity prior to closing the infraumbilical fascia with 1 [id number] 0 Vicryl suture on a UR-6 needle, washing the wounds with copious amounts of normal saline, injecting the initial insertion point of the trocar with 0.25% Marcaine with epinephrine, and then closing the skin using interrupted 4-0 Monocryl sutures. Light dressing was then applied. At the end of the operation, both the sponge count and needle count were reportedly correct x2. The patient tolerated the procedure without any reported complications. ESTIMATED BLOOD LOSS: Less than 10 mL. BLOOD OR BLOOD PRODUCT TRANSFUSIONS: None to my knowledge. SPECIMENS: None COMPLICATIONS: None. DISPOSITION: Recovery area. Disclaimer: Inadvertent spelling and grammatical errors are likely due to EHR/ dictation software use and do not reflect on the quality of delivered patient care. NICANOR SCHMID M.D. Oct 07, 2016 12:49
[2016-10-07] MEDS ORDERED: D5W-0.45 NACL + KCL 20 MEQ 1,000 ML IV SCH (13:00)
--- NOTE | 2016-10-07 13:54 | PN ---
Date/Time of Note Date/Time of Note DATE: 10/07/16 TIME: 13:51 Assessment/Plan VTE Prophylaxis VTE Prophylaxis Intervention: ambulation, LMWH Lines/Catheters IV Catheter Type (from Nrs): Peripheral IV Urinary Cath still in place: No Assessment/Plan Chief Complaint/Hosp Course Assessment/Plan: 26 yo M who presents with RLQ abd pain of sudden onset with CT findings concerning for acute appendicitis versus diverticulitis. 1.RLQ pain -symptoms slowly improved with pain control medications. Patient went for surgery today as well -Continue IVF / empiric abx / pain control -Follow-up post operation recommend patients from Dr Crockett, -May need further gastroenterology input, especially regarding any possible colonoscopy procedures to further evaluate for any diverticular disease versus inflammatory bowel disease versus other. 2. GI ppx - PPI 3. DVT ppx low molecular weight Heparin Problems: Subjective 24 Hr Interval Summary Free Text/Dictation No acute events overnight, patient went for surgery this morning. Exam/Review of Systems Vital Signs Vitals Vital Signs Date Time Temp Pulse Resp B/P Pulse Ox O2 Delivery O2 Flow Rate FiO2 10/07/16 13:26 98.2 54 14 140/59 97 Room Air Intake and Output 10/06/16 10/06/16 10/07/16 15:00 23:00 07:00 Intake Total 450 ml 2260 ml 1450 ml Balance 450 ml 2260 ml 1450 ml Exam PE -Unable to be performed today because patient is presently off the floor at surgery Results Result Diagram: 10/07/16 0429 10/07/16 0429 Results 24 hrs Laboratory Tests Test 10/07/16 04:29 White Blood Count 5.1 Red Blood Count 4.78 Hemoglobin 14.3 Hematocrit 43.4 Mean Corpuscular Volume 90.8 Mean Corpuscular Hemoglobin 29.9 Mean Corpuscular Hemoglobin Concent 32.9 Red Cell Distribution Width 12.8 Platelet Count 227 Mean Platelet Volume 10.9 H Neutrophils % 53.1 Lymphocytes % 26.7 Monocytes % 15.9 H Eosinophils % 3.1 Basophils % 1.0 Nucleated Red Blood Cells % 0.0 Neutrophils # 2.7 Lymphocytes # 1.4 Monocytes # 0.8 Eosinophils # 0.2 Basophils # 0.1 Nucleated Red Blood Cells # 0.0 Prothrombin Time 12.9 Prothrombin Time Ratio 1.0 INR International Normalized Ratio 0.97 Activated Partial Thromboplast Time 40.5 H Sodium Level 144 Potassium Level 4.0 Chloride Level 100 Carbon Dioxide Level 31 Anion Gap 17 H Blood Urea Nitrogen 11 Creatinine 0.91 Glucose Level 62 #L Calcium Level 9.5 Phosphorus Level 4.7 Magnesium Level 1.8 Total Bilirubin 0.5 Direct Bilirubin 0.00 Indirect Bilirubin 0.5 Aspartate Amino Transf (AST/SGOT) 33 Alanine Aminotransferase (ALT/SGPT) 29 Alkaline Phosphatase 49 Total Protein 6.8 Albumin 4.0 Globulin 2.80 Albumin/Globulin Ratio 1.42 Medications Medications Current Medications Ondansetron HCl (Zofran Inj) 4 mg Q6H PRN IV NAUSEA AND/OR VOMITING; Start 10/05 at 04:30 Docusate Sodium 100 mg 100 mg BID PRN PO CONSTIPATION; Start 10/05/16 at 04:30 Potassium Chloride/Dextrose/ Sod Cl (D5-1/2ns + KCl 20 Meq) 1,000 ml @ 100 mls/ hr Q10H IV ; Start 10/07/16 at 13:00 Acetaminophen/ Hydrocodone Bitart ([place] (5/325)) 1 tab Q4H PRN PO PAIN LEVEL 4 -7; Start 10/07/16 at 12:30 Acetaminophen/ Hydrocodone Bitart ([place] (5/325)) 2 tab Q4H PRN PO PAIN LEVEL 7 -10; Start 10/07/16 at 12:30 Hydromorphone HCl (Dilaudid) 0.5 mg Q2 PRN IV PAIN; Start 10/07/16 at 12:30 Hydromorphone HCl (Dilaudid) 1 mg Q2 PRN IV PAIN; Start 10/07/16 at 12:30 Docusate Sodium (Colace) 100 mg BID PRN PO CONSTIPATION; Start 10/07/16 at 12:30 Bisacodyl (Dulcolax Supp) 10 mg BID PRN [place] CONSTIPATION; Start 10/07/16 at 12:30 Sodium Biphosphate/ Sodium Phosphate (Fleet Enema) 133 ml BID PRN [place] CONSTIPATION; Start 10/07/16 at 12:30 Famotidine (Pepcid Iv) 20 mg DAILY IV ; Start 10/07/16 at 14:00 Enoxaparin Sodium (Lovenox) 40 mg DAILY SC ; Start 10/07/16 at 14:00 TYLER DELEON Oct 07, 2016 13:54
[2016-10-07] MEDS: FAMOTIDINE 20 MG INJ IV SCH (14:00)
[2016-10-07] MEDS: ENOXAPARIN 40 MG/0.4 ML SYG SC SCH (14:00)
[2016-10-07] MEDS: HYDROCODONE/APAP (5/325) TAB PO PRN ×3 (15:45→23:56)
[2016-10-08 00:03] VITALS: BP 127/60; PULSE 60; RESP 18
[2016-10-08 04:01] VITALS: BP 126/58; PULSE 61; RESP 18
[2016-10-08 05:36] LABS: ADD SCAN DIFF NO
[2016-10-08 05:42] LABS: BASOPHILS % 0.4 % (0.0-2.0); EOSINOPHILS % 0.3 % (0.0-7.0); HEMATOCRIT 43.1 % (42.0-52.0); HEMOGLOBIN 14.4 g/dl (14.0-18.0); LYMPHOCYTES # 1.2 10^3/ul (0.8-2.9); LYMPHOCYTES % 12.2 % (15.0-51.0); MEAN CORPUSCULAR HEMOGLOBIN 29.9 pg (29.0-33.0); MEAN CORPUSCULAR HGB CONC 33.4 g/dl (32.0-37.0); MEAN CORPUSCULAR VOLUME 89.6 fl (82.0-101.0); MEAN PLATELET VOLUME 11.1 fl (7.4-10.4); MONOCYTE # 0.9 10^3/ul (0.3-0.9); MONOCYTES % 9.7 % (0.0-11.0); NEUTROPHIL # 7.4 10^3/ul (1.6-7.5); NEUTROPHILS % 77.1 % (39.0-77.0); PLATELET COUNT 231 10^3/UL (140-415); RED BLOOD COUNT 4.81 10^6/ul (4.70-6.10); RED CELL DISTRIBUTION WIDTH 12.4 % (11.5-14.5); WHITE BLOOD COUNT 9.6 10^3/ul (4.8-10.8)
[2016-10-08 05:59] LABS: INR 1.04; PROTIME 13.6 Sec (12.2-14.2); PT RATIO 1.1
[2016-10-08 06:00] LABS: PARTIAL THROMBOPLASTIN TIME 30.3 Sec (25.0-35.0)
[2016-10-08] MEDS ORDERED: PANTOPRAZOLE 40 MG INJ IV SCH (06:00)
[2016-10-08 06:18] LABS: ALBUMIN/GLOBULIN RATIO 1.6; BILIRUBIN,INDIRECT 0.4 mg/dl (0-1.1); BILIRUBIN,TOTAL 0.4 mg/dl (0.2-1.3); CALCIUM 9.5 mg/dl (8.4-10.2); CREATININE 0.95 mg/dl (0.61-1.24); MAGNESIUM 1.5 mg/dl (1.7-2.5); POTASSIUM 4.1 mmol/L (3.5-5.1); TOTAL PROTEIN 6.5 g/dl (6.1-8.1)
[2016-10-08] MEDS: FAMOTIDINE 20 MG INJ IV SCH (08:34)
[2016-10-08] MEDS: HYDROCODONE/APAP (5/325) TAB PO PRN ×4 (08:34→20:59)
[2016-10-08] MEDS: ENOXAPARIN 40 MG/0.4 ML SYG SC SCH (08:48)
--- NOTE | 2016-10-08 09:55 | PN ---
Date/Time of Note Date/Time of Note DATE: 10/08/16 TIME: 09:48 Assessment/Plan VTE Prophylaxis VTE Prophylaxis Intervention: ambulation Lines/Catheters IV [facility] Saline Lock Urinary Cath still in place: No Assessment/Plan Assessment/Plan Assessment * Abdominal pain Focal colitis cecum around appendiceal site * R/O IBD vs others Plan * colonoscopy on Sunday risks and benefit explained to patient and agreed with planned procedure * Continue present management Subjective 24 Hr Interval Summary Free Text/Dictation Course reviewed with RN Patient seen and examined S/P Laparoscopic exploration with focal colitis Denies abdominal pain Exam/Review of Systems Vital Signs Vitals Vital Signs Date Time Temp Pulse Resp B/P Pulse Ox O2 Delivery O2 Flow Rate FiO2 10/08/16 04:01 98.1 61 18 126/58 100 Room Air Intake and Output 10/07/16 10/07/16 10/08/16 15:00 23:00 07:00 Intake Total 1200 ml 1200 ml 1400 ml Output Total 5 ml Balance 1195 ml 1200 ml 1400 ml Exam Constitutional: alert, oriented Head: normocephalic Neck: non-tender, supple Respiratory: clear to auscultation, normal air movement Cardiovascular: regular rate and rhythm Gastrointestinal: non-tender, soft Musculoskeletal: nl extremities to inspection, nl gait and stance Extremities: normal pulses Neurological: nl speech, nl strength Skin: nl turgor, No rash or lesions Results Result Diagram: 10/08/1643910/08/16439 Results 24 hrs Laboratory Tests Test 10/08/16 04:40 White Blood Count 9.6 # Red Blood Count 4.81 Hemoglobin 14.4 Hematocrit 43.1 Mean Corpuscular Volume 89.6 Mean Corpuscular Hemoglobin 29.9 Mean Corpuscular Hemoglobin Concent 33.4 Red Cell Distribution Width 12.4 Platelet Count 231 Mean Platelet Volume 11.1 H Neutrophils % 77.1 H Lymphocytes % 12.2 L Monocytes % 9.7 Eosinophils % 0.3 Basophils % 0.4 Nucleated Red Blood Cells % 0.0 Neutrophils # 7.4 Lymphocytes # 1.2 Monocytes # 0.9 Eosinophils # 0.0 Basophils # 0.0 Nucleated Red Blood Cells # 0.0 Prothrombin Time 13.6 Prothrombin Time Ratio 1.1 INR International Normalized Ratio 1.04 Activated Partial Thromboplast Time 30.3 Sodium Level 140 Potassium Level 4.1 Chloride Level 98 Carbon Dioxide Level 29 Anion Gap 17 H Blood Urea Nitrogen 10 Creatinine 0.95 Glucose Level 111 # Calcium Level 9.5 Phosphorus Level 4.0 Magnesium Level 1.5 L Total Bilirubin 0.4 Direct Bilirubin 0.00 Indirect Bilirubin 0.4 Aspartate Amino Transf (AST/SGOT) 28 Alanine Aminotransferase (ALT/SGPT) 24 Alkaline Phosphatase 46 Total Protein 6.5 Albumin 4.0 Globulin 2.50 Albumin/Globulin Ratio 1.60 Medications Medications Current Medications Ondansetron HCl (Zofran Inj) 4 mg Q6H PRN IV NAUSEA AND/OR VOMITING; Start 10/05 at 04:30 Docusate Sodium (Colace) 100 mg BID PRN PO CONSTIPATION; Start 10/05/16 at 04:30 Acetaminophen/ Hydrocodone Bitart ([place] (5/325)) 1 tab Q4H PRN PO PAIN LEVEL 4 -7; Start 10/07/16 at 12:30 Acetaminophen/ Hydrocodone Bitart ([place] (5/325)) 2 tab Q4H PRN PO PAIN LEVEL 7 -10 Last administered on 10/08/16 08:34; Admin Dose 2 TAB; Start 10/07/16 at 12: 30 Hydromorphone HCl (Dilaudid) 0.5 mg Q2 PRN IV PAIN; Start 10/07/16 at 12:30 Hydromorphone HCl (Dilaudid) 1 mg Q2 PRN IV PAIN; Start 10/07/16 at 12:30 Docusate Sodium (Colace) 100 mg BID PRN PO CONSTIPATION; Start 10/07/16 at 12:30 Bisacodyl (Dulcolax Supp) 10 mg BID PRN [place] CONSTIPATION; Start 10/07/16 at 12:30 Sodium Biphosphate/ Sodium Phosphate (Fleet Enema) 133 ml BID PRN [place] CONSTIPATION; Start 10/07/16 at 12:30 Famotidine (Pepcid Iv) 20 mg DAILY IV Last administered on 10/08/16 08:34; Admin Dose 20 MG; Start 10/07/16 at 14:00 Enoxaparin Sodium (Lovenox) 40 mg DAILY SC ; Start 10/07/16 at 14:00 JOSE CARLOS AVENDAÑO MD Oct 08, 2016 09:54
--- NOTE | 2016-10-08 11:58 | PN ---
Date/Time of Note Date/Time of Note DATE: 10/08/16 TIME: 11:56 Assessment/Plan VTE Prophylaxis VTE Prophylaxis Intervention: LMWH Lines/Catheters IV [facility] Saline Lock Urinary Cath still in place: No Assessment/Plan Chief Complaint/Hosp Course Assessment/Plan: 26 yo M who presents with RLQ abd pain of sudden onset with CT findings concerning for acute appendicitis versus diverticulitis. 1.RLQ pain -symptoms slowly improved with pain control medications. Patient postop day #1 laparoscopic surgery. -Continue IVF / empiric abx / pain control -Follow-up post operation recommend patients from Dr Crockett, i.e. regarding diet -Per gastroenterology input, planning for colonoscopy procedure in 2 days to further evaluate for any diverticular disease versus inflammatory bowel disease versus other. 2. GI ppx - PPI 3. DVT ppx low molecular weight Heparin Problems: Subjective 24 Hr Interval Summary Free Text/Dictation Patient had laparoscopic surgery yesterday. Tolerating diet presently. Walking in the hallway, no acute events overnight Exam/Review of Systems Vital Signs Vitals Vital Signs Date Time Temp Pulse Resp B/P Pulse Ox O2 Delivery O2 Flow Rate FiO2 10/08/16 04:01 98.1 61 18 126/58 100 Room Air Intake and Output 10/07/16 10/07/16 10/08/16 15:00 23:00 07:00 Intake Total 1200 ml 1200 ml 1400 ml Output Total 5 ml Balance 1195 ml 1200 ml 1400 ml Exam Constitutional: alert, oriented, ambulating in the hallway with daughter Head: atraumatic, normocephalic Neck: non-tender, supple Respiratory: clear to auscultation Cardiovascular: regular rate and rhythm Gastrointestinal: Less rlq tenderness, overall abd is soft, non distended,+bs Extremities: normal pulses Results Result Diagram: 10/08/16 0440 10/08/160 Results 24 hrs Laboratory Tests Test 10/08/16 04:40 White Blood Count 9.6 # Red Blood Count 4.81 Hemoglobin 14.4 Hematocrit 43.1 Mean Corpuscular Volume 89.6 Mean Corpuscular Hemoglobin 29.9 Mean Corpuscular Hemoglobin Concent 33.4 Red Cell Distribution Width 12.4 Platelet Count 231 Mean Platelet Volume 11.1 H Neutrophils % 77.1 H Lymphocytes % 12.2 L Monocytes % 9.7 Eosinophils % 0.3 Basophils % 0.4 Nucleated Red Blood Cells % 0.0 Neutrophils # 7.4 Lymphocytes # 1.2 Monocytes # 0.9 Eosinophils # 0.0 Basophils # 0.0 Nucleated Red Blood Cells # 0.0 Prothrombin Time 13.6 Prothrombin Time Ratio 1.1 INR International Normalized Ratio 1.04 Activated Partial Thromboplast Time 30.3 Sodium Level 140 Potassium Level 4.1 Chloride Level 98 Carbon Dioxide Level 29 Anion Gap 17 H Blood Urea Nitrogen 10 Creatinine 0.95 Glucose Level 111 # Calcium Level 9.5 Phosphorus Level 4.0 Magnesium Level 1.5 L Total Bilirubin 0.4 Direct Bilirubin 0.00 Indirect Bilirubin 0.4 Aspartate Amino Transf (AST/SGOT) 28 Alanine Aminotransferase (ALT/SGPT) 24 Alkaline Phosphatase 46 Total Protein 6.5 Albumin 4.0 Globulin 2.50 Albumin/Globulin Ratio 1.60 Medications Medications Current Medications Ondansetron HCl (Zofran Inj) 4 mg Q6H PRN IV NAUSEA AND/OR VOMITING; Start 10/05 at 04:30 Docusate Sodium (Colace) 100 mg BID PRN PO CONSTIPATION; Start 10/05/16 at 04:30 Acetaminophen/ Hydrocodone Bitart ([place] (5/325)) 1 tab Q4H PRN PO PAIN LEVEL 4 -7; Start 10/07/16 at 12:30 Acetaminophen/ Hydrocodone Bitart ([place] (5/325)) 2 tab Q4H PRN PO PAIN LEVEL 7 -10 Last administered on 10/08/16t 08:34; Admin Dose 2 TAB; Start 10/07/16 at 12: 30 Hydromorphone HCl (Dilaudid) 0.5 mg Q2 PRN IV PAIN; Start 10/07/16 at 12:30 Hydromorphone HCl (Dilaudid) 1 mg Q2 PRN IV PAIN; Start 10/07/16 at 12:30 Docusate Sodium (Colace) 100 mg BID PRN PO CONSTIPATION; Start 10/07/16 at 12:30 Bisacodyl (Dulcolax Supp) 10 mg BID PRN [place] CONSTIPATION; Start 10/07/16 at 12:30 Sodium Biphosphate/ Sodium Phosphate (Fleet Enema) 133 ml BID PRN [place] CONSTIPATION; Start 10/07/16 at 12:30 Famotidine (Pepcid Iv) 20 mg DAILY IV Last administered on 10/08/16t 08:34; Admin Dose 20 MG; Start 10/07/16 at 14:00 Enoxaparin Sodium (Lovenox) 40 mg DAILY SC ; Start 10/07/16 at 14:00 Bisacodyl (Dulcolax) 10 mg ONCE ONCE PO ; Start 10/09/16 at 10:00; Stop at 10:01 Magnesium Citrate (Citroma) 300 ml ONCE ONCE PO ; Start 10/09/16 at 17:30; Stop 10/09/16 at 17:31 Polyethylene Glycol 119 gm 119 gm ONCE ONCE PO ; Start 10/09/16 at 18:30; Stop 10/09/16 at 18:31 Magnesium Sulfate (Magnesium Sulfate 2 Gm/50 ml) 50 ml @ 25 mls/hr ONCE ONCE IVPB ; Start 10/08/16 at 12:00; Stop 10/08/16 at 13:59 TYLER DELEON Oct 08, 2016 11:57
[2016-10-08] MEDS ORDERED: MAGNESIUM SULFATE 2 GM/50 ML 50 ML IVPB ONE (12:00)
--- NOTE | 2016-10-08 12:09 | PN ---
Date/Time of Note Date/Time of Note DATE: 10/08/16 TIME: 12:04 Assessment/Plan Lines/Catheters IV Catheter Type (from Nrs): Saline Lock Ley in Place (from Nrs): No Assessment/Plan Assessment/Plan [facility] Progress Note Date of Service: 10/08/16 Today's Impression & Plan: Overall doing well post op without major issues. No major wound problems. Awaiting colonoscopy (? ability to do as an outpatient). Discussed with patient , family and primary team. With above assessment, I've recommended the following for today: 1. Cont current cares 2. Ask insurance company about possibility of quick outpatient colonoscopy 3. F/u with me after above Thank you again for your great care of this very pleasant patient and wonderful family. If there are any questions, please feel free to call me at [phone]. Disclaimer: Inadvertent spelling or grammatical errors are likely due to EHR/ dictation software use and do not reflect on the overall quality of patient care. Updated Clinical Summary: A very pleasant 26-year-old gentleman with a few comorbidities including BMI 41.9, with abdominal pain of unclear etiology. Not classic for acute appendicitis and no obvious appendix seen on the CT scan. Differential does include: Etiology such as diverticulosis as well as colitis. Given normal white blood cell count and temperature and unclear clinical picture, I recommended that we involve gastroenterology with consultation from them to consider possible need for endoscopic evaluation, further observation in-house and possible laparoscopic appendectomy if the patient continues to have pain or worsens. S/p an otherwise uncomplicated laparoscopic exploration with lysis of adhesions and mobilization of cecum long term up the descending colon as well as area of ileocecal valve at [facility] on 10/07/16 with findings of focal colitis added around the expected area of appendiceal stump with no structure identified as appendix indicating possible appendiceal obliteration. Comorbidities: 1. Focal colitis in cecum at and around expected site of appendix orifice with obliterated appendix; s/p laparoscopic exploration with lysis of adhesions and mobilization of right colon at [facility] 10/07/16 2. Similar episodes of right lower quadrant pain once or twice over the last 10 years 3. BMI 41.9 Subjective: No major events or complaints; no major abd pain and under control with medications; no n/v/d; no sob or cp; + flatus; + BM; + activity Objective: Vitals: See below Exam: GENERAL: On exam, the patient was sitting in his bed and appeared to be comfortable and in no acute distress. ABDOMEN: Soft, nontender and nondistended. Incision dressings are clean, dry and intact without any evidence of obvious underlying erythema, edema, discharge , or hernia. There are no peritoneal signs or guarding. SKIN: Skin appears to be pink and feels warm to touch. NEUROLOGIC: Patient is awake, alert, and follows commands appropriately. Exam/Review of Systems Vital Signs Vitals Vital Signs Date Time Temp Pulse Resp B/P Pulse Ox O2 Delivery O2 Flow Rate FiO2 10/08/16 04:01 98.1 61 18 126/58 100 Room Air Intake and Output 10/07/16 10/07/16 10/08/16 15:00 23:00 07:00 Intake Total 1200 ml 1200 ml 1400 ml Output Total 5 ml Balance 1195 ml 1200 ml 1400 ml Results Result Diagram: 10/08/16 0440 10/08/16 0440 NICANOR SCHMID M.D. Oct 08, 2016 12:09
[2016-10-08 12:35] VITALS: BP 145/66; RESP 20
[2016-10-08 19:40] VITALS: BP 142/65; RESP 20
[2016-10-09] MEDS: HYDROCODONE/APAP (5/325) TAB PO PRN ×4 (04:56→20:25)
[2016-10-09 05:02] LABS: ADD SCAN DIFF NO
[2016-10-09 05:14] LABS: BASOPHIL # 0.1 10^3/ul (0.0-0.1); BASOPHILS % 0.6 % (0.0-2.0); EOSINOPHILS # 0.1 10^3/ul (0.0-0.5); EOSINOPHILS % 1.7 % (0.0-7.0); HEMATOCRIT 43.2 % (42.0-52.0); HEMOGLOBIN 14.2 g/dl (14.0-18.0); LYMPHOCYTES # 2.3 10^3/ul (0.8-2.9); LYMPHOCYTES % 29.4 % (15.0-51.0); MEAN CORPUSCULAR HEMOGLOBIN 29.8 pg (29.0-33.0); MEAN CORPUSCULAR HGB CONC 32.9 g/dl (32.0-37.0); MEAN CORPUSCULAR VOLUME 90.6 fl (82.0-101.0); MEAN PLATELET VOLUME 10.6 fl (7.4-10.4); MONOCYTE # 1.1 10^3/ul (0.3-0.9); NEUTROPHIL # 4.2 10^3/ul (1.6-7.5); NEUTROPHILS % 53.9 % (39.0-77.0); PLATELET COUNT 230 10^3/UL (140-415); RED BLOOD COUNT 4.77 10^6/ul (4.70-6.10); RED CELL DISTRIBUTION WIDTH 12.9 % (11.5-14.5); WHITE BLOOD COUNT 7.7 10^3/ul (4.8-10.8)
[2016-10-09 05:35] LABS: MAGNESIUM 1.7 mg/dl (1.7-2.5); PHOSPHORUS 4.7 mg/dl (2.5-4.9)
[2016-10-09 05:44] LABS: CALCIUM 9.6 mg/dl (8.4-10.2); CREATININE 0.9 mg/dl (0.61-1.24); POTASSIUM 4.3 mmol/L (3.5-5.1)
[2016-10-09 08:59] VITALS: BP 128/75; RESP 20
[2016-10-09] MEDS: ENOXAPARIN 40 MG/0.4 ML SYG SC SCH (09:00)
[2016-10-09] MEDS: FAMOTIDINE 20 MG INJ IV SCH (09:31)
[2016-10-09] MEDS ORDERED: BISACODYL (EC) 5 MG TAB PO ONE (10:00)
--- NOTE | 2016-10-09 10:34 | PN ---
Date/Time of Note Date/Time of Note DATE: 10/09/16 TIME: 10:33 Assessment/Plan VTE Prophylaxis VTE Prophylaxis Intervention: SCD's Lines/Catheters IV Catheter Type (from Nrsg): Saline Lock Urinary Cath still in place: No Assessment/Plan Assessment/Plan 26 yo M with RLQ abd pain, etio unclear. ex lap 7.8 with focal colitis, etio unclear. PLAN #Cscope when approved by insurance to eval for diverticular disease v IBD v other sp empiric abx cont pain meds and IVFs discharge as per gen surg/GI consultants cont dvt prophx Subjective 24 Hr Interval Summary Free Text/Dictation Pt not in room at time of my attempted evaluation Exam/Review of Systems Vital Signs Vitals Vital Signs Date Time Temp Pulse Resp B/P Pulse Ox O2 Delivery O2 Flow Rate FiO2 10/09/16 08:59 97.8 20 128/75 94 10/08/16 19:40 47 10/08/16 04:01 Room Air Intake and Output 10/08/16 10/08/16 10/09/16 15:00 23:00 07:00 Intake Total 50 ml 1800 ml 1200 ml Balance 50 ml 1800 ml 1200 ml Exam Pt not in room at time of my attempted evaluation Results Result Diagram: 10/09/16 0430 10/09/16 0430 Results 24 hrs Laboratory Tests Test 10/09/16 04:30 White Blood Count 7.7 Red Blood Count 4.77 Hemoglobin 14.2 Hematocrit 43.2 Mean Corpuscular Volume 90.6 Mean Corpuscular Hemoglobin 29.8 Mean Corpuscular Hemoglobin Concent 32.9 Red Cell Distribution Width 12.9 Platelet Count 230 Mean Platelet Volume 10.6 H Neutrophils % 53.9 Lymphocytes % 29.4 Monocytes % 14.0 H Eosinophils % 1.7 Basophils % 0.6 Nucleated Red Blood Cells % 0.0 Neutrophils # 4.2 Lymphocytes # 2.3 Monocytes # 1.1 H Eosinophils # 0.1 Basophils # 0.1 Nucleated Red Blood Cells # 0.0 Sodium Level 140 Potassium Level 4.3 Chloride Level 97 Carbon Dioxide Level 31 Anion Gap 16 Blood Urea Nitrogen 11 Creatinine 0.90 Glucose Level 88 Calcium Level 9.6 Phosphorus Level 4.7 Magnesium Level 1.7 Medications Medications Current Medications Ondansetron HCl (Zofran Inj) 4 mg Q6H PRN IV NAUSEA AND/OR VOMITING; Start 10/05 at 04:30 Docusate Sodium (Colace) 100 mg BID PRN PO CONSTIPATION; Start 10/05/16 at 04:30 Acetaminophen/ Hydrocodone Bitart ([place] (5/325)) 1 tab Q4H PRN PO PAIN LEVEL 4 -7; Start 10/07/16 at 12:30 Acetaminophen/ Hydrocodone Bitart ([place] (5/325)) 2 tab Q4H PRN PO PAIN LEVEL 7 -10 Last administered on 10/09/16 04:56; Admin Dose 2 TAB; Start 10/07/16 at 12: 30 Hydromorphone HCl (Dilaudid) 0.5 mg Q2 PRN IV PAIN; Start 10/07/16 at 12:30 Hydromorphone HCl (Dilaudid) 1 mg Q2 PRN IV PAIN; Start 10/07/16 at 12:30 Docusate Sodium (Colace) 100 mg BID PRN PO CONSTIPATION; Start 10/07/16 at 12:30 Bisacodyl (Dulcolax Supp) 10 mg BID PRN [place] CONSTIPATION; Start 10/07/16 at 12:30 Sodium Biphosphate/ Sodium Phosphate (Fleet Enema) 133 ml BID PRN [place] CONSTIPATION; Start 10/07/16 at 12:30 Famotidine (Pepcid Iv) 20 mg DAILY IV Last administered on 10/09/16 09:31; Admin Dose 20 MG; Start 10/07/16 at 14:00 Enoxaparin Sodium (Lovenox) 40 mg DAILY SC ; Start 10/07/16 at 14:00 Magnesium Citrate (Citroma) 300 ml ONCE ONCE PO ; Start 10/09/16 at 17:30; Stop 10/09/16 at 17:31 Polyethylene Glycol (Miralax) 119 gm ONCE ONCE PO ; Start 10/09/16 at 18:30; Stop 10/09/16 at 18:31 KAREN WANG MD Oct 09, 2016 10:34 KAREN WANG MD Oct 09, 2016 10:34
--- NOTE | 2016-10-09 10:58 | PN ---
Date/Time of Note Date/Time of Note DATE: 10/09/16 TIME: 10:56 Assessment/Plan Lines/Catheters IV Catheter Type (from Nrs): Saline Lock Ley in Place (from Nrs): No Assessment/Plan Assessment/Plan [facility] Progress Note Date of Service: 10/09/16 Today's Impression & Plan: Overall doing well post op without major issues. No major wound problems. Awaiting decision on colonoscopy (? ability to do as an outpatient). Discussed with patient. With above assessment, I've recommended the following for today: 1. Cont current cares 2. Ask insurance company about possibility of quick outpatient colonoscopy 3. F/u with me after above Thank you again for your great care of this very pleasant patient and wonderful family. If there are any questions, please feel free to call me at [phone]. Disclaimer: Inadvertent spelling or grammatical errors are likely due to EHR/ dictation software use and do not reflect on the overall quality of patient care. Updated Clinical Summary: A very pleasant 26-year-old gentleman with a few comorbidities including BMI 41.9, with abdominal pain of unclear etiology. Not classic for acute appendicitis and no obvious appendix seen on the CT scan. Differential does include: Etiology such as diverticulosis as well as colitis. Given normal white blood cell count and temperature and unclear clinical picture, I recommended that we involve gastroenterology with consultation from them to consider possible need for endoscopic evaluation, further observation in-house and possible laparoscopic appendectomy if the patient continues to have pain or worsens. S/p an otherwise uncomplicated laparoscopic exploration with lysis of adhesions and mobilization of cecum half-way up the descending colon as well as area of ileocecal valve at [facility] on 10/07/16 with findings of focal colitis added around the expected area of appendiceal stump with no structure identified as appendix indicating possible appendiceal obliteration. Comorbidities: 1. Focal colitis in cecum at and around expected site of appendix orifice with obliterated appendix; s/p laparoscopic exploration with lysis of adhesions and mobilization of right colon at [facility] 10/07/16 2. Similar episodes of right lower quadrant pain once or twice over the last 10 years 3. BMI 41.9 Subjective: No major events or complaints; no major abd pain and under control with medications; no n/v/d; no sob or cp; + flatus; + BM; + activity Objective: Vitals: See below Exam: GENERAL: On exam, the patient was sitting in his bed and appeared to be comfortable and in no acute distress. ABDOMEN: Soft, nontender and nondistended. Incision dressings d/c'd and incisions are clean, dry and intact without any evidence of obvious erythema, edema, discharge, or hernia. There are no peritoneal signs or guarding. SKIN: Skin appears to be pink and feels warm to touch. NEUROLOGIC: Patient is awake, alert, and follows commands appropriately. Exam/Review of Systems Vital Signs Vitals Vital Signs Date Time Temp Pulse Resp B/P Pulse Ox O2 Delivery O2 Flow Rate FiO2 10/09/16 08:59 97.8 20 128/75 94 10/08/16 19:40 47 10/08/16 04:01 Room Air Intake and Output 10/08/16 10/08/16 10/09/16 15:00 23:00 07:00 Intake Total 50 ml 1800 ml 1200 ml Balance 50 ml 1800 ml 1200 ml Results Result Diagram: 10/09/16 0430 10/09/16 0430 NICANOR SCHMID M.D. Oct 09, 2016 10:58
[2016-10-09] MEDS ORDERED: MAGNESIUM CITRATE 300 ML BTL PO ONE (17:30)
[2016-10-09] MEDS ORDERED: POLYETHYLENE GLYCOL 3350 119 GM POWDER PO ONE (18:30)
--- NOTE | 2016-10-09 19:04 | PN ---
Date/Time of Note Date/Time of Note DATE: 10/09/16 TIME: 19:01 Assessment/Plan VTE Prophylaxis VTE Prophylaxis Intervention: SCD's Lines/Catheters IV Catheter Type (from [facility]): Saline Lock Urinary Cath still in place: No Assessment/Plan Assessment/Plan Assessment * Abdominal pain * Focal colitis cecum around appendiceal site * R/O IBD vs others Plan * Colonoscopy tomorrow risks and benefit explained to patient and agreed with planned procedure * Continue present management Subjective 24 Hr Interval Summary Free Text/Dictation Course reviewed with nursing staff Patient feels well, tolerating diet We will prep for colonoscopy tomorrow Procedure was explained in detail including risks, benefits and alternatives. Agreeable to proceed. Exam/Review of Systems Vital Signs Vitals Vital Signs Date Time Temp Pulse Resp B/P Pulse Ox O2 Delivery O2 Flow Rate FiO2 10/09/16 08:59 97.8 20 128/75 94 10/08/16 19:40 47 10/08/16 04:01 Room Air Intake and Output 10/08/16 10/08/16 10/09/16 14:59 22:59 06:59 Intake Total 50 ml 1800 ml 1200 ml Balance 50 ml 1800 ml 1200 ml Exam Constitutional: alert, oriented, well developed Psych: nl mood/affect, no complaints Head: atraumatic, normocephalic Eyes: EOMI, PERRL, nl conjunctiva, nl lids, nl sclera ENMT: nl external ears & nose, nl lips & teeth, nl nasal mucosa & septum Neck: non-tender, supple Respiratory: clear to auscultation, normal air movement Cardiovascular: nl pulses, regular rate and rhythm Gastrointestinal: bowel sounds, nl liver, spleen, soft, surgical scars, tender (Mild tenderness in the right lower quadrant), No ascites, No distended, No mass, No rebound or guarding Musculoskeletal: nl extremities to inspection, nl gait and stance Extremities: normal pulses Neurological: SENIOR MAINTENANCE TECHNICIAN II-XII intact, nl mental status, nl speech, nl strength Skin: nl turgor, No rash or lesions Lymph: nl lymph nodes Results Result Diagram: 10/09/160 10/09/16429 Results 24 hrs Laboratory Tests Test 10/09/16 04:30 White Blood Count 7.7 Red Blood Count 4.77 Hemoglobin 14.2 Hematocrit 43.2 Mean Corpuscular Volume 90.6 Mean Corpuscular Hemoglobin 29.8 Mean Corpuscular Hemoglobin Concent 32.9 Red Cell Distribution Width 12.9 Platelet Count 230 Mean Platelet Volume 10.6 H Neutrophils % 53.9 Lymphocytes % 29.4 Monocytes % 14.0 H Eosinophils % 1.7 Basophils % 0.6 Nucleated Red Blood Cells % 0.0 Neutrophils # 4.2 Lymphocytes # 2.3 Monocytes # 1.1 H Eosinophils # 0.1 Basophils # 0.1 Nucleated Red Blood Cells # 0.0 Sodium Level 140 Potassium Level 4.3 Chloride Level 97 Carbon Dioxide Level 31 Anion Gap 16 Blood Urea Nitrogen 11 Creatinine 0.90 Glucose Level 88 Calcium Level 9.6 Phosphorus Level 4.7 Magnesium Level 1.7 Medications Medications Current Medications Ondansetron HCl (Zofran Inj) 4 mg Q6H PRN IV NAUSEA AND/OR VOMITING; Start 10/05 at 04:30 Acetaminophen/ Hydrocodone Bitart ([place] (5/325)) 1 tab Q4H PRN PO PAIN LEVEL 4 -7 Last administered on 10/09/16 16:10; Admin Dose 1 TAB; Start 10/07/16 at 12: 30 Acetaminophen/ Hydrocodone Bitart ([place] (5/325)) 2 tab Q4H PRN PO PAIN LEVEL 7 -10 Last administered on 10/09/16 04:56; Admin Dose 2 TAB; Start 10/07/16 at 12: 30 Hydromorphone HCl (Dilaudid) 0.5 mg Q2 PRN IV PAIN; Start 10/07/16 at 12:30 Hydromorphone HCl (Dilaudid) 1 mg Q2 PRN IV PAIN; Start 10/07/16 at 12:30 Docusate Sodium (Colace) 100 mg BID PRN PO CONSTIPATION; Start 10/07/16 at 12:30 Bisacodyl (Dulcolax Supp) 10 mg BID PRN [place] CONSTIPATION; Start 10/07/16 at 12:30 Sodium Biphosphate/ Sodium Phosphate (Fleet Enema) 133 ml BID PRN [place] CONSTIPATION; Start 10/07/16 at 12:30 Enoxaparin Sodium (Lovenox) 40 mg DAILY SC ; Start 10/07/16 at 14:00 JOSE CARLOS AVENDAÑO MD Oct 09, 2016 19:04
[2016-10-09 19:21] VITALS: BP 132/66; RESP 18
[2016-10-10] VITALS (10 sets, daily range): BP systolic 109–146; BP diastolic 51–82; PULSE 45–68; RESP 15–20
[2016-10-10 05:16] LABS: ADD SCAN DIFF NO
[2016-10-10 05:22] LABS: BASOPHIL # 0.1 10^3/ul (0.0-0.1); BASOPHILS % 1.2 % (0.0-2.0); EOSINOPHILS # 0.1 10^3/ul (0.0-0.5); EOSINOPHILS % 2.9 % (0.0-7.0); HEMATOCRIT 45.5 % (42.0-52.0); HEMOGLOBIN 14.7 g/dl (14.0-18.0); LYMPHOCYTES # 1.8 10^3/ul (0.8-2.9); LYMPHOCYTES % 36.4 % (15.0-51.0); MEAN CORPUSCULAR HEMOGLOBIN 29.6 pg (29.0-33.0); MEAN CORPUSCULAR HGB CONC 32.3 g/dl (32.0-37.0); MEAN CORPUSCULAR VOLUME 91.5 fl (82.0-101.0); MEAN PLATELET VOLUME 10.7 fl (7.4-10.4); MONOCYTE # 0.6 10^3/ul (0.3-0.9); MONOCYTES % 12.3 % (0.0-11.0); NEUTROPHIL # 2.3 10^3/ul (1.6-7.5); PLATELET COUNT 256 10^3/UL (140-415); RED BLOOD COUNT 4.97 10^6/ul (4.70-6.10); RED CELL DISTRIBUTION WIDTH 12.7 % (11.5-14.5); WHITE BLOOD COUNT 4.8 10^3/ul (4.8-10.8)
[2016-10-10 05:35] LABS: INR 0.98; PARTIAL THROMBOPLASTIN TIME 30.3 Sec (25.0-35.0)
[2016-10-10 05:43] LABS: CALCIUM 9.5 mg/dl (8.4-10.2); CREATININE 1.04 mg/dl (0.61-1.24); POTASSIUM 3.9 mmol/L (3.5-5.1)
[2016-10-10] MEDS ORDERED: BISACODYL (EC) 5 MG TAB PO ONE (06:00)
[2016-10-10] MEDS ORDERED: POLYETHYLENE GLYCOL 3350 119 GM POWDER PO ONE (06:00)
[2016-10-10] MEDS: HYDROCODONE/APAP (5/325) TAB PO PRN ×4 (06:41→23:46)
[2016-10-10] MEDS: ENOXAPARIN 40 MG/0.4 ML SYG SC SCH (09:00)
--- NOTE | 2016-10-10 12:59 | PN ---
Date/Time of Note Date/Time of Note DATE: 10/10/16 TIME: 12:56 Assessment/Plan VTE Prophylaxis VTE Prophylaxis Intervention: SCD's Lines/Catheters IV Catheter Type (from [facility]): Saline Lock Urinary Cath still in place: No Assessment/Plan Chief Complaint/Hosp Course Assessment and plan 1. 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 right lower quadrant pain Likely secondary to above 3. BMI 41.9 Diet and exercise has been recommended We will continue monitor patient closely for recommendation management treatment as clinical course Problems: Subjective 24 Hr Interval Summary Free Text/Dictation Patient denies of any chest pain or shortness of breath No abdominal discomfort N.p.o. secondary to upcoming procedure/colonoscopy Exam/Review of Systems Vital Signs Vitals Vital Signs Date Time Temp Pulse Resp B/P Pulse Ox O2 Delivery O2 Flow Rate FiO2 10/10/16 08:39 97.7 51 19 146/63 99 10/08/16 04:01 Room Air Intake and Output 10/09/16 10/09/16 10/10/16 15:00 23:00 07:00 Intake Total 1580 ml 580 ml Balance 1580 ml 580 ml Exam General: The patient is well-developed, Not in acute distress. Moderately overweight with BMI 41.9 HEENT: Atraumatic, normocephalic. The pupils are equal and round . Neck: Supple with full range of motion. Chest: Normal expansion of the thorax during inspiration Lungs: Clear to auscultation bilaterally Heart: Normal S1-S2, Regular rhythm and rate. Abdomen: Soft , nontender, nondistended , bowel sounds are present. Surgical site is dry and clean with minimal erythema at the surgical site Extremities: Normal to inspection, no edema no cyanosis Neurologic: Normal mental status,The patient is awake, alert and oriented . Results Result Diagram: 10/10/16 0420 10/10/16 042 Results 24 hrs Laboratory Tests Test 10/10/16 04:20 White Blood Count 4.8 # Red Blood Count 4.97 Hemoglobin 14.7 Hematocrit 45.5 Mean Corpuscular Volume 91.5 Mean Corpuscular Hemoglobin 29.6 Mean Corpuscular Hemoglobin Concent 32.3 Red Cell Distribution Width 12.7 Platelet Count 256 Mean Platelet Volume 10.7 H Neutrophils % 47.0 Lymphocytes % 36.4 Monocytes % 12.3 H Eosinophils % 2.9 Basophils % 1.2 Nucleated Red Blood Cells % 0.0 Neutrophils # 2.3 Lymphocytes # 1.8 Monocytes # 0.6 Eosinophils # 0.1 Basophils # 0.1 Nucleated Red Blood Cells # 0.0 Prothrombin Time 13.0 Prothrombin Time Ratio 1.0 INR International Normalized Ratio 0.98 Activated Partial Thromboplast Time 30.3 Sodium Level 142 Potassium Level 3.9 Chloride Level 96 L Carbon Dioxide Level 35 H Anion Gap 15 Blood Urea Nitrogen 13 Creatinine 1.04 Glucose Level 85 Calcium Level 9.5 Medications Medications Current Medications Ondansetron HCl (Zofran Inj) 4 mg Q6H PRN IV NAUSEA AND/OR VOMITING; Start 10/05 at 04:30 Acetaminophen/ Hydrocodone Bitart ([place] (5/325)) 1 tab Q4H PRN PO PAIN LEVEL 4 -7 Last administered on 10/10/16 11:45; Admin Dose 1 TAB; Start 10/07/16 at 12: 30 Acetaminophen/ Hydrocodone Bitart ([place] (5/325)) 2 tab Q4H PRN PO PAIN LEVEL 7 -10 Last administered on 10/09/16 20:25; Admin Dose 2 TAB; Start 10/07/16 at 12: 30 Hydromorphone HCl (Dilaudid) 0.5 mg Q2 PRN IV PAIN; Start 10/07/16 at 12:30 Hydromorphone HCl (Dilaudid) 1 mg Q2 PRN IV PAIN; Start 10/07/16 at 12:30 Docusate Sodium (Colace) 100 mg BID PRN PO CONSTIPATION; Start 10/07/16 at 12:30 Bisacodyl (Dulcolax Supp) 10 mg BID PRN [place] CONSTIPATION; Start 10/07/16 at 12:30 Sodium Biphosphate/ Sodium Phosphate (Fleet Enema) 133 ml BID PRN [place] CONSTIPATION; Start 10/07/16 at 12:30 Enoxaparin Sodium (Lovenox) 40 mg DAILY SC ; Start 10/07/16 at 14:00 MARCIA ZHOU MD Oct 10, 2016 12:59
[2016-10-10] MEDS ORDERED: PROPOFOL 60 ML ONE (16:55)
[2016-10-10] MEDS ORDERED: MIDAZOLAM 1 MG/ML 2 ML INJ ONE (16:55)
[2016-10-10] MEDS ORDERED: HYDROmorphONE (0.2 MG/ML) 10ML SYG IV PRN (17:30)
[2016-10-10] MEDS ORDERED: ONDANSETRON 4 MG INJ IV PRN (17:30)
--- NOTE | 2016-10-10 18:27 | OPR ---
Date/Time of Note Date/Time of Note DATE: 10/10/16 TIME: 18:25 Operative Report Preoperative Diagnosis * Abnormally appearing cecum on surgical exploration, raising questions possibility of inflammatory bowel disease Postoperative Diagnosis Impression: * Mild erythema in the cecum, focal, questionable clinical significance. Biopsies obtained * Otherwise normal colonic mucosa * Normal terminal ileum. Biopsies obtained Plan: * Review pathology * Advance diet as tolerated Operation/Procedure Performed * Colonoscopy plus biopsies * Enteroscopy (ileum) plus biopsies Surgeon: JOSE CARLOS AVENDAÑO MD Anesthesia: MAC Estimated Blood Loss: none Specimens * Cecum * Terminal ileum Grafts/Implants * Not applicable Complications: None JOSE CARLOS AVENDAÑO MD Oct 10, 2016 18:27
[2016-10-11 05:20] LABS: ADD SCAN DIFF NO
[2016-10-11 05:29] LABS: BASOPHIL # 0.1 10^3/ul (0.0-0.1); BASOPHILS % 1.1 % (0.0-2.0); EOSINOPHILS # 0.2 10^3/ul (0.0-0.5); EOSINOPHILS % 3.5 % (0.0-7.0); HEMATOCRIT 45.5 % (42.0-52.0); HEMOGLOBIN 14.8 g/dl (14.0-18.0); LYMPHOCYTES # 1.8 10^3/ul (0.8-2.9); LYMPHOCYTES % 32.6 % (15.0-51.0); MEAN CORPUSCULAR HEMOGLOBIN 29.8 pg (29.0-33.0); MEAN CORPUSCULAR HGB CONC 32.5 g/dl (32.0-37.0); MEAN CORPUSCULAR VOLUME 91.7 fl (82.0-101.0); MEAN PLATELET VOLUME 10.6 fl (7.4-10.4); MONOCYTE # 0.6 10^3/ul (0.3-0.9); MONOCYTES % 11.8 % (0.0-11.0); NEUTROPHIL # 2.7 10^3/ul (1.6-7.5); NEUTROPHILS % 50.6 % (39.0-77.0); PLATELET COUNT 249 10^3/UL (140-415); RED BLOOD COUNT 4.96 10^6/ul (4.70-6.10); RED CELL DISTRIBUTION WIDTH 12.8 % (11.5-14.5); WHITE BLOOD COUNT 5.4 10^3/ul (4.8-10.8)
[2016-10-11 05:50] LABS: CALCIUM 8.7 mg/dl (8.4-10.2); CREATININE 1.22 mg/dl (0.61-1.24)
[2016-10-11] MEDS ORDERED: LEVOFLOXACIN 500 MG TAB PO SCH (06:00)
[2016-10-11 08:11] VITALS: BP 124/76; RESP 18
[2016-10-11] MEDS: ENOXAPARIN 40 MG/0.4 ML SYG SC SCH (10:15)
[2016-10-11] MEDS: HYDROCODONE/APAP (5/325) TAB PO PRN (10:16)
--- NOTE | 2016-10-11 12:33 | PDOCDIS ---
Discharge Instructions DIAGNOSIS Discharge Diagnosis Abdominal pain Obesity CONDITION Patient Condition: Good HOME CARE INSTRUCTIONS: Diet Instructions: Reduced Calorie ACTIVITY: Activity Restrictions: Slowly Increase Activity Rest between Activity Avoid heavy lifting FOLLOW UP/APPOINTMENTS Follow-up Plan Follow-up with general surgeon in 1-2 weeks Follow-up with lead manufacturing engineer in 3-4 weeks SCHOOL/WORK RELEASE May return to School/Work with: With Restrictions (May return to work on 2016 and light activity 2 weeks) MARCIA ZHOU MD Oct 11, 2016 12:33
[2016-10-11] MEDS ORDERED: LEVO500T72 PO (12:38)
[2016-10-11] MEDS ORDERED: HYDR-3498 PO (12:38)
[2016-10-11] MEDS ORDERED: FAMO20TA18 PO (12:38)
[2016-10-11] MEDS ORDERED: DOCU-216 PO (12:38)
--- NOTE | 2016-10-11 14:08 | PN ---
Date/Time of Note Date/Time of Note DATE: 10/11/16 TIME: 14:04 Assessment/Plan Lines/Catheters IV Catheter Type (from Nrsg): Saline Lock Ley in Place (from Nrs): No Assessment/Plan Assessment/Plan [facility] Progress Note Date of Service: 10/09/16 Today's Impression & Plan: Overall doing well post op without major issues. No major wound problems. S/p colonoscopy on 10/10/16: minimal inflammation in the cecum; biopsies done; not enough to treat medically on the initial assessment pending path findings. Normal ileocecal valve and no mention of visibility of appendiceal origin. No indication for further surgery or intervention at this time. There is good chance that the patient's original pain will also dissipate (? 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 Discussed with patient and family and answered all questions. D/w Dr. Salvador from GI and Dr. Palma from IM. With above assessment, I've recommended the following for today: 1. D/c home 2. F/u with PCP 3. F/u with us in 2-3 weeks for wound check 4. F/u with GI prn Thank you again for your great care of this very pleasant patient and wonderful family. If there are any questions, please feel free to call me at [phone]. Disclaimer: Inadvertent spelling or grammatical errors are likely due to EHR/ dictation software use and do not reflect on the overall quality of patient care. Updated Clinical Summary: A very pleasant 26-year-old gentleman with a few comorbidities including BMI 41.9, with abdominal pain of unclear etiology. Not classic for acute appendicitis and no obvious appendix seen on the CT scan. Differential does include: Etiology such as diverticulosis as well as colitis. Given normal white blood cell count and temperature and unclear clinical picture, I recommended that we involve gastroenterology with consultation from them to consider possible need for endoscopic evaluation, further observation in-house and possible laparoscopic appendectomy if the patient continues to have pain or worsens. S/p an otherwise uncomplicated laparoscopic exploration with lysis of adhesions and mobilization of cecum snf up the descending colon as well as area of ileocecal valve at [facility] on 10/07/16 with findings of focal colitis added around the expected area of appendiceal stump with no structure identified as appendix indicating possible appendiceal obliteration. S/p colonoscopy at [facility] 02/16: minimal inflammation in the cecum; biopsies done; not enough to treat medically on the initial assessment pending path findings Comorbidities: 1. Focal colitis in cecum at and around expected site of appendix orifice with obliterated appendix; s/p laparoscopic exploration with lysis of adhesions and mobilization of right colon at [facility] 10/07/16; s/p colonoscopy at [facility] 10/10/16: minimal inflammation in the cecum ; biopsies done; not enough to treat medically on the initial assessment pending path findings 2. Similar episodes of right lower quadrant pain once or twice over the last 10 years 3. BMI 41.9 Subjective: No major events or complaints; no major abd pain and under control with medications; no n/v/d; no sob or cp; + flatus; + BM; + activity Objective: Vitals: See below Exam: GENERAL: On exam, the patient was sitting in his bed and appeared to be comfortable and in no acute distress. ABDOMEN: Soft, nontender and nondistended. Incisions are clean, dry and intact without any evidence of obvious erythema, edema, discharge, or hernia. There are no peritoneal signs or guarding. SKIN: Skin appears to be pink and feels warm to touch. NEUROLOGIC: Patient is awake, alert, and follows commands appropriately. Exam/Review of Systems Vital Signs Vitals Vital Signs Date Time Temp Pulse Resp B/P Pulse Ox O2 Delivery O2 Flow Rate FiO2 10/11/16 08:11 93.2 62 18 124/76 97 10/10/16 18:27 Room Air Intake and Output 10/10/16 10/10/16 10/11/16 15:00 23:00 07:00 Intake Total 400 ml 1200 ml Balance 400 ml 1200 ml Results Result Diagram: 10/11/16 0441 10/11/16 0441 NICANOR SCHMID M.D. Oct 11, 2016 14:08
--- NOTE | 2016-10-11 15:03 | PN ---
Date/Time of Note Date/Time of Note DATE: 10/11/16 TIME: 15:00 Assessment/Plan VTE Prophylaxis VTE Prophylaxis Intervention: ambulation Lines/Catheters IV [facility]ter Type [facility]from [facility] Saline Lock Urinary Cath still in place: No Assessment/Plan Assessment/Plan Abdominal pain * Focal colitis cecum around appendiceal site Plan Stable for outpatient management case discussed with Dr Salvador Subjective 24 Hr Interval Summary Free Text/Dictation * Course reviewed * Patient seen and examined * No untoward events overnight * Colonoscopy Mild erythema in the cecum, focal, questionable clinical significance. Biopsies obtained Otherwise normal colonic mucosa Normal terminal ileum. Biopsies obtained Exam/Review of Systems Vital Signs Vitals Vital Signs Date Time Temp Pulse Resp B/P Pulse Ox O2 Delivery O2 Flow Rate FiO2 10/11/16 08:11 93.2 62 18 124/76 97 10/10/16 18:27 Room Air Intake and Output 10/10/16 10/10/16 10/11/16 15:00 23:00 07:00 Intake Total 400 ml 1200 ml Balance 400 ml 1200 ml Exam Constitutional: alert, oriented Psych: nl mood/affect, no complaints Head: normocephalic Neck: non-tender, supple Respiratory: clear to auscultation, normal air movement Cardiovascular: nl pulses, regular rate and rhythm Gastrointestinal: soft Musculoskeletal: nl gait and stance Extremities: normal pulses Neurological: nl speech, nl strength Skin: nl turgor, No rash or lesions Results Result Diagram: 10/11/161 10/11/16 0441 Results 24 hrs Laboratory Tests Test 10/11/16 04:41 White Blood Count 5.4 Red Blood Count 4.96 Hemoglobin 14.8 Hematocrit 45.5 Mean Corpuscular Volume 91.7 Mean Corpuscular Hemoglobin 29.8 Mean Corpuscular Hemoglobin Concent 32.5 Red Cell Distribution Width 12.8 Platelet Count 249 Mean Platelet Volume 10.6 H Neutrophils % 50.6 Lymphocytes % 32.6 Monocytes % 11.8 H Eosinophils % 3.5 Basophils % 1.1 Nucleated Red Blood Cells % 0.0 Neutrophils # 2.7 Lymphocytes # 1.8 Monocytes # 0.6 Eosinophils # 0.2 Basophils # 0.1 Nucleated Red Blood Cells # 0.0 Sodium Level 136 Potassium Level 4.0 Chloride Level 100 Carbon Dioxide Level 31 Anion Gap 9 # Blood Urea Nitrogen 13 Creatinine 1.22 Glucose Level 78 Calcium Level 8.7 Medications Medications Current Medications Ondansetron HCl (Zofran Inj) 4 mg Q6H PRN IV NAUSEA AND/OR VOMITING; Start 10/05 at 04:30 Acetaminophen/ Hydrocodone Bitart ([place] (5/325)) 1 tab Q4H PRN PO PAIN LEVEL 4 -7 Last administered on 10/11/16 10:16; Admin Dose 1 TAB; Start 10/07/16 at 12: 30 Acetaminophen/ Hydrocodone Bitart ([place] (5/325)) 2 tab Q4H PRN PO PAIN LEVEL 7 -10 Last administered on 10/09/16 20:25; Admin Dose 2 TAB; Start 10/07/16 at 12: 30 Hydromorphone HCl (Dilaudid) 0.5 mg Q2 PRN IV PAIN; Start 10/07/16 at 12:30 Hydromorphone HCl (Dilaudid) 1 mg Q2 PRN IV PAIN; Start 10/07/16 at 12:30 Docusate Sodium (Colace) 100 mg BID PRN PO CONSTIPATION; Start 10/07/16 at 12:30 Bisacodyl (Dulcolax Supp) 10 mg BID PRN [place] CONSTIPATION; Start 10/07/16 at 12:30 Sodium Biphosphate/ Sodium Phosphate (Fleet Enema) 133 ml BID PRN [place] CONSTIPATION; Start 10/07/16 at 12:30 Enoxaparin Sodium (Lovenox) 40 mg DAILY SC Last administered on 10/11/16 10:15 ; Admin Dose 40 MG; Start 10/07/16 at 14:00 Levofloxacin (Levaquin) 500 mg DAILY@06 PO Last administered on 10/11/16 06:05 ; Admin Dose 500 MG; Start 10/11/16 at 06:00; Stop 10/16/16 at 05:59 BECKY SQUIRES NP Oct 11, 2016 15:03
--- NOTE | 2016-10-21 11:44 | DS ---
DATE OF ADMISSION: 10/07/2016 DATE OF DISCHARGE: 10/11/2016 FACTORY MAINTENANCE MANAGER(S): 1. 2. Curt Geiger NP 3. Guerline Salvador MD PROCEDURE: 1. Colonoscopy. 2. Laparoscopic exploration with lysis of adhesions and mobilization of the right colon. FINAL DIAGNOSES: 1. Focal colitis in the cecum and around the expected site of appendix orifice with obliterated appendix. 2. Similar episodes of right lower quadrant pain once to twice over the past 10 years. 3. A BMI of 41.9. 4. History of perforated appendicitis. MEDICATIONS: 1. Levaquin 500 mg. 2. Colace. 3. Pepcid. 4. [place]. ALLERGIES: NO KNOWN DRUG ALLERGIES. HOSPITAL COURSE: This is a 26-year-old gentleman with a past medical history of morbid obesity and question of perforated appendicitis whom was treated conservatively secondary to high risk of any surgical intervention secondary to his morbid obesity. The patient has been having off and on abdominal discomfort since that episode which was about 2 years ago. He presented to [facility] Emergency Room on having right lower quadrant abdominal pain. CT abdomen and pelvis which was obtained showed appendix was not definitely visualized, redundant cecum deep in the pelvis, 5 mm adjacent calcifications surrounding infiltration of the fat, question of calcified appendicolith with early appendicitis versus diverticulitis. No abscess or pneumoperitoneum. Gastroenterology and General Surgery were consulted. The patient was placed on IV fluid, pain management, n.p.o., was on IV antibiotics. He was taken to OR on 10/07/2016 by General Surgery and had a laparoscopic exposure with lysis of adhesions, embolization of right colon which was found to have focal colitis in the cecum around the suspected appendix orifice and obliterated appendix. The patient was then seen and evaluated by glove wrapper and was taken to GI lab for a colonoscopy and found more erythema in the cecum, focal questionable clinical significance. Biopsy was obtained. Otherwise normal colonic mucosa. Normal terminal ileum. Biopsies were obtained. The patient was started on full liquid diet which has been advanced. He denies having any abdominal pain, nausea, vomiting, diarrhea or any urinary discomfort. No chest pain. No shortness of breath. At this time the patient is medically stable to be discharged home with a close follow up with his primary care physician, follow up with glove wrapper in 3-4 weeks. He will follow up with General Surgery in 1-2 weeks. LABS: WBC 4.5, hemoglobin 14.8, hematocrit 45.5, platelets 249, sodium 136, potassium 4.3, chloride 100, bicarb 31, BUN 13, creatinine 1.22, glucose 78, calcium 8.7. DISCHARGE CONDITION: Stable. VITAL SIGNS: Temperature 98.2, pulse 62, respiratory rate 18, blood pressure 124/76. Saturation 97% on room air. The patient may return to work on 10/16/2016 with light activity x2 weeks. Dictated By: Rashad Palma MD /edi/carissa /Document#: [id number]
== END 2016-10-11 14:59 | disposition home or self-care (01) | DRG 336 ==
LOC: FTE 20:25 → MS1 10-05 02:24 → OBSVTOIN 10-07 13:22
PROVIDERS: ADMIT Family Medicine; ATTEND Hospitalist
PROC: 0DBB8ZX Excision of Ileum, Via Natural or Artificial Opening Endoscopic, Diagnostic (ICD-10-PCS; 2016-10-07)
PROC: 0DBK8ZX Excision of Ascending Colon, Via Natural or Artificial Opening Endoscopic, Diagnostic (ICD-10-PCS; 2016-10-07)
PROC: 0DNF4ZZ Release Right Large Intestine, Percutaneous Endoscopic Approach (ICD-10-PCS; principal; 2016-10-07 09:30)
DX: K52.89 Other specified noninfective gastroenteritis and colitis (principal); Z68.41 Body mass index [BMI] 40.0-44.9, adult; E66.01 Morbid (severe) obesity due to excess calories; L53.8 Other specified erythematous conditions; R10.31 Right lower quadrant pain
CPT/HCPCS: 36415; 71020; 74176; 74177; 80048; 80053; 81003; 83690; 83735; 84100; 85025; 85610; 85730; 93005; 96374; 96375; 96376; G0378; J0360; J0744; J1100; J1170; J1200; J1650; J1885; J2175; J2250; J2270; J2405; J2543; J2795; J3010; J3475; J3480; J7030; J7042; J7999; Q9967

== ENCOUNTER 2016-10-25 15:34 | Outpatient (CLI) | payer BC ==
[~2016-10-25] VITALS: Ht 193 cm; Wt 160.0 kg
[~2016-10-25 15:34] MED LIST: DOCU-216 PO; FAMO20TA18 PO; HYDR-3498 PO; LEVO500T72 PO
[2016-10-25 15:41] VITALS: BP 139/67; PULSE 92; RESP 16; Ht 193 cm; Wt 160.0 kg
--- NOTE | 2016-10-25 19:23 | PN ---
Date/Time of Note Date/Time of Note DATE: 10/25/16 TIME: 18:22 Assessment/Plan Assessment/Plan Assessment/Plan [facility] Progress Note Date of Service: 10/25/16 Today's Impression & Plan: Overall doing well post op without major issues. No major wound problems. No indication for further surgical intervention at this time. Patient's pain appears to be completely resolved. This could perhaps be from lysis of adhesions that freed the colon and terminal ileum from being in a fixed and stretched position in the abdominal cavity. I explained to the patient that the process of healing likely will continue over the next number of months and that there is a small chance that his pain may return if the new scarring produces the same effect. We also discussed importance of change of lifestyle with the aim of bringing his BMI from 42.9 down to between 18-14. We discussed ways to achieve that. Answered all the patient's questions to the best my ability. We also filled out patient's disability form for 2 weeks of lost work due to his emergency surgical needs and hospitalizations. With above assessment, I've recommended the following for today: 1. Follow-up with primary care physician which I asked the office to please assist the patient to get connected with 2. Follow-up with us as needed Thank you again for your great care of this very pleasant patient and wonderful family. If there are any questions, please feel free to call me at [phone]. Disclaimer: Inadvertent spelling or grammatical errors are likely due to EHR/ dictation software use and do not reflect on the overall quality of patient care. Updated Clinical Summary: A very pleasant 26-year-old gentleman with a few comorbidities including BMI 41.9, with abdominal pain of unclear etiology. Not classic for acute appendicitis and no obvious appendix seen on the CT scan. Differential does include: Etiology such as diverticulosis as well as colitis. Given normal white blood cell count and temperature and unclear clinical picture, I recommended that we involve gastroenterology with consultation from them to consider possible need for endoscopic evaluation, further observation in-house and possible laparoscopic appendectomy if the patient continues to have pain or worsens. S/p an otherwise uncomplicated laparoscopic exploration with lysis of adhesions and mobilization of cecum skilled nursing up the descending colon as well as area of ileocecal valve at [facility] on 10/07/16 with findings of focal colitis added around the expected area of appendiceal stump with no structure identified as appendix indicating possible appendiceal obliteration. S/p colonoscopy at [facility] 02/16: minimal inflammation in the cecum; biopsies done; not enough to treat medically on the initial assessment pending path findings. Comorbidities: 1. Focal colitis in cecum at and around expected site of appendix orifice with obliterated appendix; s/p laparoscopic exploration with lysis of adhesions and mobilization of right colon at [facility] 10/07/16; s/p colonoscopy at [facility] 10/10/16: minimal inflammation in the cecum ; biopsies done; not enough to treat medically on the initial assessment pending path findings 2. Similar episodes of right lower quadrant pain once or twice over the last 10 years 3. BMI 41.9 Subjective: No major events or complaints since discharge; no major abd pain and no longer on pain medications; no n/v/d; no sob or cp; + flatus; + BM; + activity Objective: Vitals: See below Exam: GENERAL: On exam, the patient was sitting in his bed and appeared to be comfortable and in no acute distress. ABDOMEN: Soft, nontender and nondistended. Incisions are clean, dry and intact without any evidence of obvious erythema, edema, discharge, or hernia. There are no peritoneal signs or guarding. SKIN: Skin appears to be pink and feels warm to touch. NEUROLOGIC: Patient is awake, alert, and follows commands appropriately. Exam/Review of Systems Vital Signs Vitals Vital Signs Date Time Temp Pulse Resp B/P Pulse Ox O2 Delivery O2 Flow Rate FiO2 10/25/16 15:41 97.0 92 16 139/67 92 Room Air NICANOR SCHMID M.D. Oct 25, 2016 19:22
== END 2016-10-25 16:22 | disposition home or self-care (01) ==
LOC: HPC 15:34
PROVIDERS: ATTEND Transplant Surgery
DX: K52.9 Noninfective gastroenteritis and colitis, unspecified (principal); R10.31 Right lower quadrant pain
CPT/HCPCS: G0463

== ENCOUNTER 2016-10-28 17:58 | Emergency (ER) | payer BC ==
[~2016-10-28] VITALS: Ht 193 cm; Wt 159.2 kg
[~2016-10-28 17:58] MED LIST changes: -FAMO20TA18 PO; -HYDR-3498 PO; -LEVO500T72 PO
[2016-10-28 18:00] VITALS: Ht 193 cm; Wt 159.2 kg
[2016-10-28] MEDS ORDERED: LIDOCAINE/MYLANTA 40 ML BTL PO STA (18:17)
[2016-10-28] MEDS ORDERED: ONDANSETRON (ODT) 4 MG TAB ODT STA (18:17)
[2016-10-28] MEDS ORDERED: BELLADONNA/PHENOBARBITAL TAB PO STA (18:17)
[2016-10-28] MEDS ORDERED: FAMOTIDINE 20 MG TAB PO ONE (18:30)
[2016-10-28 18:39] LABS: BASOPHILS % 0.3 % (0.0-2.0); EOSINOPHILS # 0.1 10^3/ul (0.0-0.5); EOSINOPHILS % 1.3 % (0.0-7.0); HEMOGLOBIN 15.4 g/dl (14.0-18.0); LYMPHOCYTES # 1.4 10^3/ul (0.8-2.9); LYMPHOCYTES % 17.6 % (15.0-51.0); MEAN CORPUSCULAR HEMOGLOBIN 30.6 pg (29.0-33.0); MEAN CORPUSCULAR HGB CONC 34.2 g/dl (32.0-37.0); MEAN CORPUSCULAR VOLUME 89.5 fl (82.0-101.0); MEAN PLATELET VOLUME 10.5 fl (7.4-10.4); MONOCYTE # 0.8 10^3/ul (0.3-0.9); MONOCYTES % 9.9 % (0.0-11.0); NEUTROPHIL # 5.5 10^3/ul (1.6-7.5); NEUTROPHILS % 70.6 % (39.0-77.0); PLATELET COUNT 265 10^3/UL (140-415); RED BLOOD COUNT 5.03 10^6/ul (4.70-6.10); RED CELL DISTRIBUTION WIDTH 12.4 % (11.5-14.5); WHITE BLOOD COUNT 7.8 10^3/ul (4.8-10.8)
[2016-10-28 18:41] LABS: ADD UMIC NO; UR ASCORBIC ACID 20 mg/dL (NEGATIVE); UR BILIRUBIN (Dip) NEGATIVE (NEGATIVE); UR BLOOD (Dip) NEGATIVE (NEGATIVE); UR CLARITY CLEAR (CLEAR); UR COLOR STRAW (YELLOW); UR GLUCOSE (Dip) NEGATIVE (NEGATIVE); UR KETONES (Dip) NEGATIVE (NEGATIVE); UR LEUKOCYTE ESTERASE (Dip) NEGATIVE Leu/ul (NEGATIVE); UR NITRITE (Dip) NEGATIVE (NEGATIVE); UR TOTAL PROTEIN (Dip) NEGATIVE (NEGATIVE); UR UROBILINOGEN (Dip) NEGATIVE (NEGATIVE)
[2016-10-28 18:58] LABS: ALBUMIN 4.3 g/dl (3.3-4.9); ALBUMIN/GLOBULIN RATIO 1.34; BILIRUBIN,INDIRECT 1.6 mg/dl (0-1.1); BILIRUBIN,TOTAL 1.6 mg/dl (0.2-1.3); CALCIUM 9.8 mg/dl (8.4-10.2); CREATININE 0.94 mg/dl (0.61-1.24); POTASSIUM 3.9 mmol/L (3.5-5.1); TOTAL PROTEIN 7.5 g/dl (6.1-8.1)
--- NOTE | 2016-10-28 19:09 | RADRPT ---
PROCEDURE: US Abdomen (right upper quadrant). CLINICAL INDICATION: abdominal pain TECHNIQUE: Multiple real-time longitudinal and transverse images of the right upper quadrant of th e abdomen were acquired utilizing a curved array transducer. Images were reviewed on a high-resoluti on PACS workstation. COMPARISON: CT dated 10/04/2016 FINDINGS: The liver is large measuring 19.6 cm, without focal mass or intrahepatic biliary dilatation. The gallbladder is normal. There is no pericholecystic fluid or gallbladder wall thickening or gallstones. No intra or extrahepatic biliary dilatation is seen. The common bile duct measures 3.8 mm in maximal dimension. Pancreas is not well seen due to overlying bowel gas. No free fluid is identified. The right kidney measures 11.0 cm in length. There is normal echogenicity within the right kidney. There is no perinephric fluid collection. No hydronephrosis, mass, or calculus is seen. IMPRESSION: 1. Hepatomegaly. 2. No evidence of cholelithiasis or cholecystitis. 3. Nonvisualization of the pancreas. RPTAT: II .Kirill Fitzpatrick MD, MD Date Time Electronically viewed and signed by .Kirill Fitzpatrick MD, on 10/28/2016 19:09 .M/
[2016-10-28] MEDS ORDERED: DICY10CA60 PO (19:23)
[2016-10-28] MEDS ORDERED: ONDA-43 PO (19:23)
[2016-10-28] MEDS ORDERED: FAMO-96 PO (19:23)
--- NOTE | 2016-10-28 19:28 | ERD ---
ER Documentation Chief Complaint Date/Time DATE: 10/28/16 TIME: 19:25 Chief Complaint GENERALIZED ABDOMINAL PAIN HPI This is a 26-year-old male presents to the ER with upper abdominal pain that started earlier today. Patient states that he ate a week stopped last night and that a couple of hours ago he developed a burning epigastric pain. Patient denies any vomiting or diarrhea. He denies any fevers or chills. Patient does not have any urinary frequency or dysuria. Patient was hospitalized earlier this month secondary to appendicitis. Patient denies any right lower quadrant tenderness and he states that the areas where the incisions were are completely healed. ROS 12 point review of systems was done, all negative except per HPI. Medications Home Meds Active Scripts Ondansetron Hcl* (Zofran*) 4 Mg Tab, 4 MG PO Q4H Y for NAUSEA AND OR VOMITING for 3 Days, TAB Prov:RAMA VALENZUELA 10/28/16 Dicyclomine Hcl* (Bentyl*) 10 Mg Capsule, 10 MG PO QID for 7 Days, CAP Prov:RAMA VALENZUELA 10/28/16 Famotidine* (Pepcid*) 20 Mg Tablet, 20 MG PO BID for 10 Days, TAB Prov:RAMA VALENZUELA 10/28/16 Docusate Sodium (Dok) 100 Mg Capsule, 100 MG PO BID Y for CONSTIPATION, #30 CAP Prov:MARCIA ZHOU MD 10/11/16 Discontinued Scripts Famotidine* (Famotidine*) 20 Mg Tablet, 20 MG PO DAILY, #30 TAB Prov:MARCIA ZHOU MD 10/11/16 Hydrocodone Bit-Acetaminophen (Hydrocodone Bit-APAP) 5-325MG Tablet, 1 TAB PO Q4H Y for PAIN LEVEL 4-7, #1 TAB Prov:MARCIA ZHOU MD 10/11/16 Levofloxacin* (Levaquin*) 500 Mg Tablet, 500 MG PO DAILY@06, #5 TAB Prov:MARCIA ZHOU MD 10/11/16 Allergies Allergies: Coded Allergies: No Known Allergy (Unverified , 10/07/16) PMhx/Soc History of Surgery: No Anesthesia Reaction: No Hx Neurological Disorder: No Hx Respiratory Disorders: No Hx Cardiac Disorders: No Hx Psychiatric Problems: No Hx Miscellaneous Medical Probl: No Hx Alcohol Use: Yes (SOCIALY) Hx Substance Use: No Hx Tobacco Use: No Smoking Status: Never smoker Physical Exam Vitals Vital Signs Date Time Temp Pulse Resp B/P Pulse Ox O2 Delivery O2 Flow Rate FiO2 10/28/16 18:00 98.3 53 18 148/80 99 Physical Exam GENERAL: The patient is well developed and appropriate for usual state of health , in no apparent distress. HEENT: Atraumatic. CHEST: Clear to auscultation bilaterally. There are no rales, wheezes or rhonchi. HEART: Regular rate and rhythm. No murmurs, clicks, rubs or gallops. ABDOMEN: Soft, nondistended ttp in the epigastric area. Good bowel sounds. No rebound or guarding. No gross peritonitis. No gross organomegaly or masses. No Argueta sign or McBurney point tenderness. BACK: No midline or flank tenderness. NEURO: Alert and oriented. Result Diagram: 10/28/16 1835 10/28/16 1835 Results 24 hrs Laboratory Tests Test 10/28/16 18:27 10/28/16 18:35 Urine Color STRAW Urine Clarity CLEAR Urine pH 6.0 Urine Specific [place] 1.010 Urine Ketones NEGATIVEmg/dL Urine Nitrite NEGATIVEmg/dL Urine Bilirubin NEGATIVEmg/dL Urine Urobilinogen NEGATIVEmg/dL Urine Leukocyte Esterase NEGATIVELeu/ul Urine Hemoglobin NEGATIVEmg/dL Urine Glucose NEGATIVEmg/dL Urine Total Protein NEGATIVEmg/dl White Blood Count 7.810^3/ul Red Blood Count 5.0310^6/ul Hemoglobin 15.4g/dl Hematocrit 45.0% Mean Corpuscular Volume 89.5fl Mean Corpuscular Hemoglobin 30.6pg Mean Corpuscular Hemoglobin Concent 34.2g/dl Red Cell Distribution Width 12.4% Platelet Count 47759^3/UL Mean Platelet Volume 10.5fl Neutrophils % 70.6% Lymphocytes % 17.6% Monocytes % 9.9% Eosinophils % 1.3% Basophils % 0.3% Nucleated Red Blood Cells % 0.0/100WBC Neutrophils # 5.510^3/ul Lymphocytes # 1.410^3/ul Monocytes # 0.810^3/ul Eosinophils # 0.110^3/ul Basophils # 0.010^3/ul Nucleated Red Blood Cells # 0.010^3/ul Sodium Level 140mmol/L Potassium Level 3.9mmol/L Chloride Level 98mmol/L Carbon Dioxide Level 31mmol/L Anion Gap 15 Blood Urea Nitrogen 9mg/dl Creatinine 0.94mg/dl Glucose Level 92mg/dl Calcium Level 9.8mg/dl Total Bilirubin 1.6mg/dl Direct Bilirubin 0.00mg/dl Indirect Bilirubin 1.6mg/dl Aspartate Amino Transf (AST/SGOT) 29IU/L Alanine Aminotransferase (ALT/SGPT) 37IU/L Alkaline Phosphatase 50IU/L Total Protein 7.5g/dl Albumin 4.3g/dl Globulin 3.20g/dl Albumin/Globulin Ratio 1.34 Lipase 38U/L Current Medications Medications (Trade) Dose Ordered Sig/[place] Route PRN Reason Start Time Stop Time Status Last Admin Dose Admin Miscellaneous Medication (Gi Cocktail (2)) 40 ml ONCE STAT PO 10/28/16 18:17 10/28/16 18:20 DC 10/28/16 18:36 [place]/ Phenobarbital () 2 tab ONCE STAT PO 10/28/16 18:17 10/28/16 18:20 DC 10/28/16 18:36 Ondansetron HCl (Zofran Odt) 4 mg ONCE STAT ODT 10/28/16 18:17 10/28/16 18:20 DC 10/28/16 18:36 Famotidine (Pepcid) 20 mg ONCE ONCE PO 10/28/16 18:30 10/28/16 18:31 DC 10/28/16 18:36 Procedures/MDM Differential Diagnosis: GERD, gastritis, peptic ulcer disease, pancreatitis, cholecystitis, choledocholithiasis, biliary colic, cholangitis, [id number] , ACS/NM, Pnuemonia. this is a 26-year-old male presents to the ER with epigastric pain. Suspicion for acute abdomen is low. Patient is afebrile and well-appearing. Patient does not have any right lower quadrant abdominal pain or lower abdominal pain.. I doubt complication or abscess from recent surgery. Patient's physical examination is benign. There is no evidence of leukocytosis. Patient felt significantly better in the ER after treatment. Patient is to follow-up with his primary care doctor within 1-2 days return to ER sooner if symptoms worsen. My medical decision making shared with the patient understands and agrees with plan. Departure Diagnosis: Primary Impression: Abdominal pain Condition: Stable Patient Instructions: Abdominal Pain Additional Instructions: Call your primary care doctor TOMORROW for an appointment during the next 1-2 days.See the doctor sooner or return here if your condition worsens before your appointment time. RAMA VALENZUELA Oct 28, 2016 19:28
[2016-10-28 19:40] VITALS: BP 144/78; PULSE 55; RESP 18; TEMP 98.3
== END 2016-10-28 19:40 | disposition home or self-care (01) ==
LOC: FTE 17:58
DX: R10.84 Generalized abdominal pain (principal)
CPT/HCPCS: 36415; 76705; 80053; 81003; 83690; 85025